=== PATIENT | male | born 1945 | race Caucasian/White ===

== ENCOUNTER 2016-08-24 11:54 | Inpatient (IN) | payer MEDICARE ==
[~2016-08-24] VITALS: Ht 182.9 cm; Wt 66.2 kg
[2016-08-24] VITALS (9 sets, daily range): BP systolic 152–156; BP diastolic 75–76; PULSE 79–98; RESP 16–17; TEMP 97.6–98.6; O2SAT 95–100
[2016-08-24] MEDS ORDERED: IOHEXOL 350 MG/ML 10 ML VIAL (for RAD DIAG) IV ONE (12:05)
[2016-08-24 12:18] LABS: AUTOMATED NEUTROPHIL # 11.2 TH/MM3 (1.8-7.7); BASOPHIL # 0.1 TH/MM3 (0-0.2); BASOPHIL % 0.8 % (0.0-2.0); EOSINOPHIL # 0.1 TH/MM3 (0-0.4); EOSINOPHIL % 0.4 % (0.0-4.0); HEMATOCRIT 35.6 % (39.0-51.0); I-STAT POTASSIUM 3.7 MMOL/L (3.5-4.9); I-STAT SODIUM 139 MMOL/L (138-146); LYMPH % 5.6 % (9.0-44.0); LYMPHOCYTE # 0.7 TH/MM3 (1.0-4.8); MEAN CELL VOLUME 91.9 FL (80.0-100.0); MEAN CORPUSCULAR HEMOGLOBIN 30.7 PG (27.0-34.0); MEAN CORPUSCULAR HGB CONC 33.5 % (32.0-36.0); MONO % 4.4 % (0.0-8.0); NEUT % 88.8 % (16.0-70.0); PLATELET COUNT 228 TH/MM3 (150-450); RED BLOOD COUNT 3.88 MIL/MM3 (4.50-5.90); RED CELL DISTRIBUTION WIDTH 14.9 % (11.6-17.2); WHITE BLOOD COUNT 12.6 TH/MM3 (4.0-11.0)
[2016-08-24 12:19] LABS: HEMO FLAGS AUTO DIFF
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
[2016-08-24 12:28] LABS: APTT (PATIENT) 23.3 SEC (24.3-30.1); PROTHROMBIN TIME - PATIENT 10.7 SEC (9.8-11.6)
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
[2016-08-24] MEDS: SODIUM CHLOR 0.9% 1000 ML INJ 1,000 ML IV SCH (12:41)
[2016-08-24] MEDS ORDERED: CHLORHEXIDINE GLUCONATE 2 % 1 PACK (2 CLOTHS) TOP PRN (12:45)
[2016-08-24] MEDS ORDERED: MISCELLANEOUS NURSING INFORMATION XX SCH (12:45)
[2016-08-24] MEDS ORDERED: MAGNESIUM HYDROXIDE SUSP 30 ML CUP PO PRN (12:45)
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
[2016-08-24 12:50] LABS: BANDS 12 % (0-6); BASOPHILS 1 % (0-2); METAMYELOCYTES 2 % (0-1); NEUTROPHIL # MANUAL DIFF 11.6 TH/MM3 (1.8-7.7); POLYS (SEG NEUTROPHILS) 78 % (16-70); WBC DIFF SAMPLE 100
[2016-08-24 12:51] LABS: PLATELET ESTIMATE SMEAR NORMAL (NORMAL); PLATELET MORPHOLOGY NORMAL (NORMAL); SCAN/DIFF FINAL DIFF MANUAL
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
[2016-08-24] MEDS ORDERED: ONDANSETRON HCL 4 MG/2 ML VIAL IV PRN (13:00)
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
[2016-08-24] MEDS: LIDOCAINE HCL 5% PATCH T-DERMAL SCH (14:15)
[2016-08-24] MEDS: METHOCARBAMOL 500 MG TAB PO SCH ×2 (14:34→22:54)
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
[2016-08-24] MEDS: FAMOTIDINE 20 MG/2 ML VIAL IV PUSH SCH ×2 (16:13→20:48)
[2016-08-24] MEDS: ACETAMINOPHEN/HYDROcodone 325 MG/5 MG TAB PO PRN ×2 (16:16→22:54)
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
[2016-08-24] MEDS ORDERED: LIDOCAINE HCL 1% 50 ML VIAL ONE (18:07)
--- NOTE | 2016-08-24 18:19 | RADRPT ---
EXAM DATE/TIME: 08/24/2016 17:18 [facility] COMPARISON: CT FACIAL BONES W/O CONTRAST, August 24, 2016, 12:05. INDICATIONS : Pain. MEDICAL HISTORY : Carcinoma, prostate. SURGICAL HISTORY : Right ankle. ENCOUNTER: Subsequent ACUITY: 1 day PAIN SCORE: 5/10 LOCATION: neck TECHNIQUE: Multiplanar, multisequence MRI examination of the cervical spine was performed. FINDINGS: VERTEBRAE: Normal vertebral body height. Homogeneous marrow signal. ALIGNMENT: No evidence of subluxation. CORD: Normal configuration and signal. POST FOSSA: The cerebellar tonsils are normal in position. A hematocrit level is seen involving the maxillary sinuses bilaterally. C2-C3: The thecal sac has a normal configuration. There is no evidence of disc herniation or spinal canal s tenosis. The neural foramina are patent bilaterally. C3-C4: There is a minimal broad-based disc bulge. No abutment of the cord or central canal stenosis. Lateral recesses are patent. Neural foramina are patent. C4-C5: There is a minimal broad-based disc bulge. No abutment of the cord or central canal stenosis. Lateral recesses are patent. Neural foramina are patent. C5-C6: There is a minimal broad-based disc bulge. No abutment of the cord or central canal stenosis. Lateral recesses are patent. Neural foramina are patent. C6-C7: The thecal sac has a normal configuration. There is no evidence of disc herniation or spinal canal s tenosis. The neural foramina are patent bilaterally. C7-T1: The thecal sac has a normal configuration. There is no evidence of disc herniation or spinal canal s tenosis. The neural foramina are patent bilaterally. CONCLUSION: 1. No acute abnormality involving the cervical spine. The cord shows normal signal throughout. 2. Minimal degenerative disc disease without abutment of the cord or neural foraminal narrowing. 3. Hematocrit levels involving the maxillary sinuses bilaterally. Osito Diop Jr., MD on August 24, 2016 at 18:12 Board Certified Radiologist. This report was verified electronically.
--- NOTE | 2016-08-24 18:30 | HHI.PR ---
Immediate Post Op Note Procedure Date: Aug 24, 2016 Pre Op Diagnosis: left forehead laceration 1cm left superior eyelid laceration 2cm Post Op Diagnosis: joanne Surgeon: Néstor Chi Transportation Modeler(s): pt's nurse jesus Procedure: closure of left forehead laceration and left upper eyelid laceration Complications: none Specimen(s) removed: none Estimated blood loss: minimal Anesthesia: Local (2%lidocaine approx 2cc) Drains: None Patient Condition: Good Date/Time of Procedure: SEE SURGICAL CARE RECORD Néstor Chi DMD Aug 24, 2016 18:30
[2016-08-24] MEDS: DOCUSATE SODIUM 50 MG/SENNA 8.6 MG TAB PO SCH (20:48)
[2016-08-24] MEDS: BACITRACIN OPHT OINT 3.5 GM TUBO SCH (20:49)
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
[2016-08-24] MEDS: REMOVE OLD LIDOCAINE PATCH T-DERMAL SCH (21:00)
[2016-08-25] VITALS (14 sets, daily range): BP systolic 119–148; BP diastolic 66–87; PULSE 84–108; RESP 13–27; TEMP 98.7–99; O2SAT 94–100
[2016-08-25] MEDS: SODIUM CHLOR 0.9% 1000 ML INJ 1,000 ML IV SCH ×2 (00:36→12:39)
[2016-08-25] MEDS: HYDROmorphone HCL PF 1 MG/ML VIAL IV PRN ×5 (02:01→19:26)
[2016-08-25] MEDS: LABETALOL HCL 100 MG/20 ML VIAL IV PRN (03:58)
[2016-08-25] MEDS: CHLORHEXIDINE GLUCONATE 2 % 1 PACK (2 CLOTHS) TOP SCH (04:00)
--- NOTE | 2016-08-25 04:05 | RADRPT ---
EXAM DATE/TIME: 08/25/2016 03:27 [facility] COMPARISON: No previous studies available for comparison. INDICATIONS : Shortness of breath. MEDICAL HISTORY : Non-responsive SURGICAL HISTORY : Non-responsive ENCOUNTER: Subsequent ACUITY: 2 days PAIN SCORE: Non-responsive. LOCATION: Bilateral chest FINDINGS: Left rib fractures are again noted. There is a curvilinear opacity projecting over the left mid-upper lung but it continues over the mediastinum and is not typical for pneumothorax. There are clearly so me lung markings peripheral to it. Mild bibasilar atelectasis noted. CONCLUSION: 1. Left rib fractures without a definite pneumothorax. Please see above. 2. Mild bibasilar atelectasis. Tacos Mcgowan MD on August 25, 2016 at 4:01 Board Certified Radiologist. This report was verified electronically.
--- NOTE | 2016-08-25 04:43 | RADRPT ---
EXAM DATE/TIME: 08/25/2016 04:32 [facility] COMPARISON: CT BRAIN W/O CONTRAST, August 24, 2016, 12:05. INDICATIONS : Follow up hemorrhage. RADIATION DOSE: 33.90 CTDIvol (mGy) MEDICAL HISTORY : None SURGICAL HISTORY : None. ENCOUNTER: Subsequent ACUITY: 1 day PAIN SCALE: Non-responsive LOCATION: cranial TECHNIQUE: Multiple contiguous axial images were obtained of the head. Using automated exposure control and adj ustment of the mA and/or kV according to patient size, radiation dose was kept as low as reasonably a chievable to obtain optimal diagnostic quality images. DICOM format image data is available electro nically for review and comparison. FINDINGS: Increased size and density of scattered parenchymal contusions noted. There is a 26 mm contusion late rally the right parietal lobe and an 18 x 47 mm contusion superiorly of the left parietal lobe now pr esent. 19 mm contusion anteriorly the right temporal lobe seen. Multiple scattered subcentimeter foci of parenchymal hemorrhage are seen, mostly of the right parietal and temporal lobes. Subarachnoid bl ood at the level of the basal cistern not significantly changed. Trace blood now seen dependently in the posterior horn of the right lateral ventricle. A subdural hemorrhage measuring about 6 mm in maxi mal thickness is seen along the anterior left temporal lobe. This is more conspicuous today but not s ignificantly changed. No midline shift. No mass lesion seen. No evidence of an acute ischemic event. CONCLUSION: 1. Increasing multifocal parenchymal hemorrhage. Please see above. 2. Trace hemorrhage now seen in the right lateral ventricle. 3. Left temporal small subdural hemorrhage not significantly changed. 4. Subarachnoid hemorrhage not significantly changed. 5. No measurable midline shift. Tacos Mcgowan MD on August 25, 2016 at 4:36 Board Certified Radiologist. This report was verified electronically.
[2016-08-25 05:01] LABS: AUTOMATED NEUTROPHIL # 12.9 TH/MM3 (1.8-7.7); BASOPHIL % 0.2 % (0.0-2.0); HEMATOCRIT 31.7 % (39.0-51.0); HEMO FLAGS DIFF FINAL; LYMPH % 2.5 % (9.0-44.0); LYMPHOCYTE # 0.4 TH/MM3 (1.0-4.8); MEAN CELL VOLUME 92.4 FL (80.0-100.0); MEAN CORPUSCULAR HEMOGLOBIN 30.7 PG (27.0-34.0); MEAN CORPUSCULAR HGB CONC 33.2 % (32.0-36.0); MONO % 6.6 % (0.0-8.0); NEUT % 90.7 % (16.0-70.0); PLATELET COUNT 171 TH/MM3 (150-450); RED BLOOD COUNT 3.43 MIL/MM3 (4.50-5.90); WHITE BLOOD COUNT 14.2 TH/MM3 (4.0-11.0)
[2016-08-25 05:33] LABS: BICARBONATE 20.8 MEQ/L (21.0-32.0); MAGNESIUM 1.8 MG/DL (1.5-2.5); POTASSIUM 3.1 MEQ/L (3.5-5.1)
[2016-08-25 06:50] LABS: BACTERIA, URINE RARE /hpf; BLOOD, URINE LARGE (NEG); GLUCOSE,URINE NEG (NEG); KETONE, URINE 40 mg/dL (NEG); MUCUS URINE MOD /lpf (OCC); NITRITE,URINE NEG (NEG); PH, URINE 5.5 (5.0-8.5); URINE COLOR YELLOW (YELLW/STRAW)
[2016-08-25 06:51] LABS: COMMENT (UR) CATH-CULTURE IND; CULTURE IF INDICATED CATH CULTURE IND
[2016-08-25] MEDS: METHOCARBAMOL 500 MG TAB PO SCH ×4 (07:10→22:00)
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
[2016-08-25 08:21] LABS: CALCIUM-PROTEIN CORRECTED 8.9 MG/DL (8.5-10.1)
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
[2016-08-25] MEDS: DOCUSATE SODIUM 50 MG/SENNA 8.6 MG TAB PO SCH ×3 (09:59→21:23)
[2016-08-25] MEDS: FAMOTIDINE 20 MG/2 ML VIAL IV PUSH SCH ×2 (09:59→21:22)
[2016-08-25] MEDS: LIDOCAINE HCL 5% PATCH T-DERMAL SCH (10:04)
[2016-08-25] MEDS: BACITRACIN OPHT OINT 3.5 GM TUBO SCH ×2 (10:04→21:00)
[2016-08-25] MEDS ORDERED: POTASSIUM PHOSPHATE INJ 30 MMOL in SODIUM CHLOR 0.9% 250 ML INJ 250 ML IV PRN (10:15)
[2016-08-25] MEDS ORDERED: POTASSIUM PHOSPHATE MONOBASIC 500 MG TAB PO/TUBE PRN (10:15)
[2016-08-25] MEDS ORDERED: MAGNESIUM OXIDE 400 MG TAB PO PRN (10:15)
[2016-08-25] MEDS ORDERED: MAGNESIUM SULFATE INJ 2 GM in SODIUM CHLORIDE 0.9% INJ 96 ML IV PRN (10:15)
[2016-08-25] MEDS ORDERED: POTASSIUM PHOSPHATE MONOBASIC 500 MG TAB PO PRN (10:15)
[2016-08-25] MEDS ORDERED: SODIUM PHOSPHATE INJ 30 MMOL in SODIUM CHLOR 0.9% 250 ML INJ 240 ML IV PRN (10:15)
[2016-08-25] MEDS ORDERED: MAGNESIUM SULFATE INJ 4 GM in SODIUM CHLORIDE 0.9% INJ 92 ML IV PRN (10:15)
[2016-08-25] MEDS ORDERED: POTASSIUM CHLORIDE 25 MEQ EFFERVESCENT TAB PO PRN (10:15)
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
[2016-08-25] MEDS: levETIRAcetam INJ 500 MG in SODIUM CHLORIDE 0.9% INJ 100 ML IV SCH ×2 (12:39→21:22)
[2016-08-25 12:44] LABS: APTT (PATIENT) 27.1 SEC (24.3-30.1); PROTHROMBIN TIME - PATIENT 11.3 SEC (9.8-11.6)
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
[2016-08-25] MEDS: ACETAMINOPHEN/HYDROcodone 325 MG/5 MG TAB PO PRN (14:52)
[2016-08-25] MEDS ORDERED: ACETAMINOPHEN 1000 MG/100 ML VIAL IV ONE (18:45)
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
[2016-08-25] MEDS ORDERED: LORazepam 2 MG/ML VIAL IV PUSH PRN (19:30)
[2016-08-25] MEDS: POTASSIUM CHLOR 20 MEQ PREMIX 100 ML IV PRN ×2 (19:52→22:14)
[2016-08-25] MEDS: REMOVE OLD LIDOCAINE PATCH T-DERMAL SCH (21:00)
[2016-08-26] VITALS (13 sets, daily range): BP systolic 113–149; BP diastolic 68–97; PULSE 96–144; RESP 12–21; TEMP 98.3–98.8; O2SAT 94–97
[2016-08-26] MEDS: SODIUM CHLOR 0.9% 1000 ML INJ 1,000 ML IV SCH ×2 (00:07→12:21)
[2016-08-26] MEDS: POTASSIUM CHLOR 20 MEQ PREMIX 100 ML IV PRN ×2 (00:08→03:01)
--- NOTE | 2016-08-26 02:01 | RADRPT ---
EXAM DATE/TIME: 08/26/2016 01:24 [facility] COMPARISON: CT BRAIN W/O CONTRAST, August 25, 2016, 4:32. INDICATIONS : Neuro status change. RADIATION DOSE: 39.91 CTDIvol (mGy) MEDICAL HISTORY : None SURGICAL HISTORY : None. ENCOUNTER: Subsequent ACUITY: 3 days PAIN SCALE: Non-responsive LOCATION: cranial TECHNIQUE: Multiple contiguous axial images were obtained of the head. Using automated exposure control and adj ustment of the mA and/or kV according to patient size, radiation dose was kept as low as reasonably a chievable to obtain optimal diagnostic quality images. DICOM format image data is available electro nically for review and comparison. FINDINGS: CEREBRUM: Left parietal hemorrhagic contusion unchanged. Right parietal cortical hemorrhagic contusion unchange d. Small adjacent right parietal parenchymal hemorrhage also unchanged. Peripheral right temporal lob e contusions unchanged. Left anterior temporal extra-axial hemorrhage unchanged. Right lateral ventri catarino hemorrhage unchanged. Sherrell-mesencephalic cistern hemorrhage bilaterally unchanged. No midline harry ft. POSTERIOR FOSSA: The cerebellum and brainstem are intact. The 4th ventricle is midline. The cerebellopontine angle i s unremarkable. EXTRACRANIAL: Sinus opacification and air fluid levels unchanged. SKULL: Facial bone fractures unchanged. CONCLUSION: No significant interval change in multiple intracranial hemorrhages. Yogi Arcos MD on August 26, 2016 at 1:56 Board Certified Radiologist. This report was verified electronically.
[2016-08-26] MEDS: HYDROmorphone HCL PF 1 MG/ML VIAL IV PRN (02:56)
[2016-08-26] MEDS: CHLORHEXIDINE GLUCONATE 2 % 1 PACK (2 CLOTHS) TOP SCH (03:13)
--- NOTE | 2016-08-26 03:51 | RADRPT ---
EXAM DATE/TIME: 08/26/2016 02:53 [facility] COMPARISON: CHEST SINGLE AP, August 25, 2016, 3:27. INDICATIONS : Short of breath. MEDICAL HISTORY : None. SURGICAL HISTORY : None. ENCOUNTER: Subsequent ACUITY: 2 days PAIN SCORE: Non-responsive. LOCATION: Bilateral chest FINDINGS: Single AP view of the chest. Patchy bilateral lower lung opacity unchanged. Small left pleural effusi on now seen. No evidence of pneumothorax. Cardiomediastinal silhouette unchanged. CONCLUSION: Small left pleural effusion. Patchy bilateral lower lung opacity unchanged. Yogi Arcos MD on August 26, 2016 at 3:48 Board Certified Radiologist. This report was verified electronically.
[2016-08-26 05:26] LABS: AUTOMATED NEUTROPHIL # 16.4 TH/MM3 (1.8-7.7); BASOPHIL % 0.1 % (0.0-2.0); HEMATOCRIT 31.9 % (39.0-51.0); HEMO FLAGS DIFF FINAL; LYMPH % 2.3 % (9.0-44.0); LYMPHOCYTE # 0.4 TH/MM3 (1.0-4.8); MEAN CELL VOLUME 91.2 FL (80.0-100.0); MEAN CORPUSCULAR HEMOGLOBIN 31.4 PG (27.0-34.0); MEAN CORPUSCULAR HGB CONC 34.4 % (32.0-36.0); MONO % 7.7 % (0.0-8.0); NEUT % 89.9 % (16.0-70.0); PLATELET COUNT 191 TH/MM3 (150-450); WHITE BLOOD COUNT 18.3 TH/MM3 (4.0-11.0)
[2016-08-26] MEDS: METHOCARBAMOL 500 MG TAB PO SCH ×3 (05:40→21:06)
[2016-08-26 05:51] LABS: ANION GAP 9 MEQ/L (5-15); AST (GOT) 51 U/L (15-37); BICARBONATE 23.2 MEQ/L (21.0-32.0); BLOOD UREA NITROGEN 11 MG/DL (7-18); CHLORIDE 102 MEQ/L (98-107); GLOMERULAR FILTRATION RATE 208 ML/MIN (>89); MAGNESIUM 1.8 MG/DL (1.5-2.5); POTASSIUM 3.9 MEQ/L (3.5-5.1); SODIUM (NA) 134 MEQ/L (136-145)
[2016-08-26 05:52] LABS: ALT (GPT) 16 U/L (12-78)
[2016-08-26 05:55] LABS: ALKALINE PHOSPHATASE 88 U/L (45-117); TOTAL BILIRUBIN ADULT 1.5 MG/DL (0.2-1.0)
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
[2016-08-26] MEDS: LIDOCAINE HCL 5% PATCH T-DERMAL SCH (09:20)
[2016-08-26] MEDS: levETIRAcetam INJ 500 MG in SODIUM CHLORIDE 0.9% INJ 100 ML IV SCH ×2 (09:20→21:11)
[2016-08-26] MEDS: DOCUSATE SODIUM 50 MG/SENNA 8.6 MG TAB PO SCH ×2 (09:20→19:46)
[2016-08-26] MEDS: FAMOTIDINE 20 MG/2 ML VIAL IV PUSH SCH ×2 (09:21→21:11)
[2016-08-26] MEDS: BACITRACIN OPHT OINT 3.5 GM TUBO SCH ×2 (09:21→21:00)
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
[2016-08-26] MEDS: SODIUM CHLORIDE 23.4% INJ 188 MEQ in SODIUM CHLOR 0.9% 1000 ML INJ 1,000 ML IV SCH (13:55)
[2016-08-26] MEDS ORDERED: levETIRAcetam 1000 MG INJ 100 ML IV ONE (14:45)
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
[2016-08-26] MEDS: REMOVE OLD LIDOCAINE PATCH T-DERMAL SCH (21:00)
[2016-08-26] MEDS ORDERED: levETIRAcetam 1000 MG INJ 100 ML IV SCH (21:00)
[2016-08-27] VITALS (12 sets, daily range): BP systolic 98–118; BP diastolic 62–76; PULSE 95–118; RESP 16–22; TEMP 98.1–99.2; O2SAT 97–98
[2016-08-27] MEDS: SODIUM CHLOR 0.9% 1000 ML INJ 1,000 ML IV SCH (00:16)
[2016-08-27] MEDS: CHLORHEXIDINE GLUCONATE 2 % 1 PACK (2 CLOTHS) TOP SCH (04:00)
[2016-08-27 04:10] LABS: HEMATOCRIT 33.8 % (39.0-51.0); MEAN CELL VOLUME 89.8 FL (80.0-100.0); MEAN CORPUSCULAR HEMOGLOBIN 30.9 PG (27.0-34.0); MEAN CORPUSCULAR HGB CONC 34.4 % (32.0-36.0); PLATELET COUNT 188 TH/MM3 (150-450); RED BLOOD COUNT 3.76 MIL/MM3 (4.50-5.90); RED CELL DISTRIBUTION WIDTH 14.9 % (11.6-17.2); REVIEW FLAG FINAL; WHITE BLOOD COUNT 13.9 TH/MM3 (4.0-11.0)
[2016-08-27] MEDS: METHOCARBAMOL 500 MG TAB PO SCH ×3 (04:10→22:07)
[2016-08-27 04:46] LABS: BICARBONATE 21.4 MEQ/L (21.0-32.0); MAGNESIUM 1.8 MG/DL (1.5-2.5); POTASSIUM 3.4 MEQ/L (3.5-5.1)
[2016-08-27] MEDS: POTASSIUM CHLOR 20 MEQ PREMIX 100 ML IV PRN ×3 (05:00→23:03)
[2016-08-27] MEDS: LABETALOL HCL 100 MG/20 ML VIAL IV PRN (06:43)
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
[2016-08-27] MEDS: levETIRAcetam INJ 500 MG in SODIUM CHLORIDE 0.9% INJ 100 ML IV SCH ×2 (08:10→20:07)
[2016-08-27] MEDS: LIDOCAINE HCL 5% PATCH T-DERMAL SCH (08:11)
[2016-08-27] MEDS: FAMOTIDINE 20 MG/2 ML VIAL IV PUSH SCH ×2 (08:11→20:07)
[2016-08-27] MEDS: DOCUSATE SODIUM 50 MG/SENNA 8.6 MG TAB PO SCH ×2 (08:12→20:07)
[2016-08-27] MEDS: LACTULOSE SYRUP 20 GM/30 ML CUP PO SCH (08:12)
[2016-08-27] MEDS: BACITRACIN OPHT OINT 3.5 GM TUBO SCH ×2 (08:13→20:07)
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
[2016-08-27] MEDS ORDERED: SODIUM CHLOR 0.9% 1000 ML INJ 1,000 ML IV ONE (10:30)
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
[2016-08-27] MEDS: SODIUM CHLORIDE 23.4% INJ 188 MEQ in SODIUM CHLOR 0.9% 1000 ML INJ 1,000 ML IV SCH ×2 (13:00→22:07)
[2016-08-27] MEDS: ACETAMINOPHEN/HYDROcodone 325 MG/5 MG TAB PO PRN (13:31)
[2016-08-27 20:25] LABS: POTASSIUM 3.4 MEQ/L (3.5-5.1)
[2016-08-27] MEDS: REMOVE OLD LIDOCAINE PATCH T-DERMAL SCH (21:00)
[2016-08-28] VITALS (12 sets, daily range): BP systolic 115–152; BP diastolic 59–95; PULSE 101–124; RESP 20–23; TEMP 98.2–99.1; O2SAT 97–99
[2016-08-28] MEDS: HALOPERIDOL LACTATE 5 MG/ML AMP IV PRN ×2 (00:05→10:13)
[2016-08-28] MEDS: POTASSIUM CHLOR 20 MEQ PREMIX 100 ML IV PRN (01:00)
[2016-08-28] MEDS: CHLORHEXIDINE GLUCONATE 2 % 1 PACK (2 CLOTHS) TOP SCH (04:00)
[2016-08-28 04:10] LABS: BLOOD GAS BASE EXCESS -3.4 mmol/L (-2-2); BLOOD GAS CARBOXYHEMOGLOBIN 1.5 % (0-4); BLOOD GAS HCO3 20 mmol/L (22-26); BLOOD GAS METHEMOGLOBIN 0.7 % (0-2); BLOOD GAS O2 HGB SATURATION 95 % (90-100); BLOOD GAS OXYGEN CONTENT 13.8 Vol % (12.0-20.0); BLOOD GAS PCO2 29 mmHg (38-42); BLOOD GAS PO2 87 mmHg (61-120); BLOOD GAS TOTAL HGB 10.3 G/DL (12.0-16.0); CRITICAL VALUE NO; DRAW SITE RT RADIAL; FIO2 21 %; NUMBER OF ARTERIAL PUNCTURES 1; STAT NO; TEMP CORR TO 98.6; ULNAR PULSE PRESENT
--- NOTE | 2016-08-28 04:32 | RADRPT ---
EXAM DATE/TIME: 08/28/2016 04:18 [facility] COMPARISON: CT BRAIN W/O CONTRAST, August 26, 2016, 1:24. INDICATIONS : Follow up trauma. RADIATION DOSE: 39.41 CTDIvol (mGy) MEDICAL HISTORY : None SURGICAL HISTORY : None. ENCOUNTER: Subsequent ACUITY: 4 - 6 days PAIN SCALE: 7/10 LOCATION: cranial TECHNIQUE: Multiple contiguous axial images were obtained of the head. Using automated exposure control and adj ustment of the mA and/or kV according to patient size, radiation dose was kept as low as reasonably a chievable to obtain optimal diagnostic quality images. DICOM format image data is available electro nically for review and comparison. FINDINGS: Air-fluid levels in maxillary sinuses and sphenoid sinuses, left frontal sinus. There are reidentifie d hemorrhagic contusions in the right temporal region with a small amount of surrounding edema, left temporal extra-axial hemorrhage measuring 6.7 mm in maximal thickness, hemorrhage in the perimesencep halic cistern, bilateral posterior horns, right parietal hemorrhage and a left frontal supraventricul ar hematoma with surrounding edema, not significantly changed. There are no new areas of hemorrhage i dentified. No fractures are seen. CONCLUSION: No significant interval change. Andrea Candelario MD on August 28, 2016 at 4:28 Board Certified Radiologist. This report was verified electronically.
[2016-08-28 05:32] LABS: AUTOMATED NEUTROPHIL # 10.3 TH/MM3 (1.8-7.7); BASOPHIL % 0.1 % (0.0-2.0); EOSINOPHIL % 0.2 % (0.0-4.0); HEMO FLAGS DIFF FINAL; LYMPH % 3.5 % (9.0-44.0); LYMPHOCYTE # 0.4 TH/MM3 (1.0-4.8); MEAN CELL VOLUME 93.1 FL (80.0-100.0); MEAN CORPUSCULAR HEMOGLOBIN 31.5 PG (27.0-34.0); MEAN CORPUSCULAR HGB CONC 33.8 % (32.0-36.0); MONO % 7.9 % (0.0-8.0); NEUT % 88.3 % (16.0-70.0); PLATELET COUNT 160 TH/MM3 (150-450); RED BLOOD COUNT 3.44 MIL/MM3 (4.50-5.90); RED CELL DISTRIBUTION WIDTH 14.8 % (11.6-17.2); WHITE BLOOD COUNT 11.7 TH/MM3 (4.0-11.0)
[2016-08-28] MEDS: METHOCARBAMOL 500 MG TAB PO SCH ×3 (05:43→20:51)
[2016-08-28 05:51] LABS: ANION GAP 9 MEQ/L (5-15); AST (GOT) 38 U/L (15-37); BLOOD UREA NITROGEN 8 MG/DL (7-18); CHLORIDE 106 MEQ/L (98-107); GLOMERULAR FILTRATION RATE 178 ML/MIN (>89); MAGNESIUM 1.9 MG/DL (1.5-2.5); POTASSIUM 3.8 MEQ/L (3.5-5.1); SODIUM (NA) 137 MEQ/L (136-145)
[2016-08-28 05:55] LABS: ALKALINE PHOSPHATASE 76 U/L (45-117); ALT (GPT) 15 U/L (12-78); TOTAL BILIRUBIN ADULT 1.2 MG/DL (0.2-1.0)
[2016-08-28] MEDS: ACETAMINOPHEN/HYDROcodone 325 MG/5 MG TAB PO PRN ×4 (07:05→22:14)
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
[2016-08-28] MEDS: BACITRACIN OPHT OINT 3.5 GM TUBO SCH ×2 (09:00→20:52)
[2016-08-28] MEDS: LIDOCAINE HCL 5% PATCH T-DERMAL SCH (10:06)
[2016-08-28] MEDS: levETIRAcetam INJ 500 MG in SODIUM CHLORIDE 0.9% INJ 100 ML IV SCH ×2 (10:08→20:50)
[2016-08-28] MEDS: LACTULOSE SYRUP 20 GM/30 ML CUP PO SCH (10:09)
[2016-08-28] MEDS: FAMOTIDINE 20 MG/2 ML VIAL IV PUSH SCH ×2 (10:09→20:51)
[2016-08-28] MEDS: DOCUSATE SODIUM 50 MG/SENNA 8.6 MG TAB PO SCH ×2 (10:09→20:51)
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
[2016-08-28] MEDS: LABETALOL HCL 100 MG/20 ML VIAL IV PRN ×2 (11:47→16:14)
[2016-08-28] MEDS: SODIUM CHLORIDE 1 GRAM TAB PO SCH (12:29)
[2016-08-28] MEDS: ACETAMINOPHEN 1000 MG/100 ML VIAL IV PRN (15:49)
[2016-08-28] MEDS: REMOVE OLD LIDOCAINE PATCH T-DERMAL SCH (20:51)
[2016-08-28] MEDS: SODIUM CHLORIDE 23.4% INJ 188 MEQ in SODIUM CHLOR 0.9% 1000 ML INJ 1,000 ML IV SCH (21:43)
[2016-08-29] VITALS (12 sets, daily range): BP systolic 117–139; BP diastolic 68–83; PULSE 99–130; RESP 20–25; TEMP 98.2–98.8; O2SAT 95–99
[2016-08-29] MEDS: HYDROmorphone HCL PF 1 MG/ML VIAL IV PRN (00:19)
[2016-08-29] MEDS: CHLORHEXIDINE GLUCONATE 2 % 1 PACK (2 CLOTHS) TOP SCH (04:00)
[2016-08-29 05:48] LABS: AUTOMATED NEUTROPHIL # 18.3 TH/MM3 (1.8-7.7); BASOPHIL # 0.2 TH/MM3 (0-0.2); BASOPHIL % 1.1 % (0.0-2.0); EOSINOPHIL % 0.1 % (0.0-4.0); HEMATOCRIT 32.7 % (39.0-51.0); HEMO FLAGS DIFF FINAL; LYMPH % 1.8 % (9.0-44.0); LYMPHOCYTE # 0.4 TH/MM3 (1.0-4.8); MEAN CELL VOLUME 92.5 FL (80.0-100.0); MEAN CORPUSCULAR HEMOGLOBIN 30.8 PG (27.0-34.0); MEAN CORPUSCULAR HGB CONC 33.3 % (32.0-36.0); MONO % 4.6 % (0.0-8.0); NEUT % 92.4 % (16.0-70.0); PLATELET COUNT 161 TH/MM3 (150-450); RED BLOOD COUNT 3.53 MIL/MM3 (4.50-5.90); RED CELL DISTRIBUTION WIDTH 14.9 % (11.6-17.2); WHITE BLOOD COUNT 19.8 TH/MM3 (4.0-11.0)
[2016-08-29 06:06] LABS: ALT (GPT) 16 U/L (12-78); ANION GAP 11 MEQ/L (5-15); AST (GOT) 50 U/L (15-37); BICARBONATE 19.1 MEQ/L (21.0-32.0); BLOOD UREA NITROGEN 9 MG/DL (7-18); CHLORIDE 107 MEQ/L (98-107); GLOMERULAR FILTRATION RATE 227 ML/MIN (>89); MAGNESIUM 1.8 MG/DL (1.5-2.5); POTASSIUM 3.6 MEQ/L (3.5-5.1); SODIUM (NA) 137 MEQ/L (136-145)
[2016-08-29 06:09] LABS: ALKALINE PHOSPHATASE 75 U/L (45-117)
[2016-08-29] MEDS: METHOCARBAMOL 500 MG TAB PO SCH ×3 (06:10→21:17)
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
[2016-08-29] MEDS: LACTULOSE SYRUP 20 GM/30 ML CUP PO SCH (08:11)
[2016-08-29] MEDS: levETIRAcetam INJ 500 MG in SODIUM CHLORIDE 0.9% INJ 100 ML IV SCH ×2 (08:12→21:17)
[2016-08-29] MEDS: FAMOTIDINE 20 MG/2 ML VIAL IV PUSH SCH ×2 (08:12→21:17)
[2016-08-29] MEDS: DOCUSATE SODIUM 50 MG/SENNA 8.6 MG TAB PO SCH ×2 (08:12→21:17)
[2016-08-29] MEDS: SODIUM CHLORIDE 1 GRAM TAB PO SCH (08:12)
[2016-08-29] MEDS: LIDOCAINE HCL 5% PATCH T-DERMAL SCH (08:12)
[2016-08-29] MEDS: BACITRACIN OPHT OINT 3.5 GM TUBO SCH ×2 (08:13→21:18)
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
[2016-08-29] MEDS: SODIUM CHLORIDE 23.4% INJ 188 MEQ in SODIUM CHLOR 0.9% 1000 ML INJ 1,000 ML IV SCH (18:21)
[2016-08-29] MEDS: REMOVE OLD LIDOCAINE PATCH T-DERMAL SCH (21:00)
[2016-08-30] VITALS (12 sets, daily range): BP systolic 129–146; BP diastolic 70–87; PULSE 113–138; RESP 21–32; TEMP 98–98.7; O2SAT 95–97
[2016-08-30] MEDS: ACETAMINOPHEN/HYDROcodone 325 MG/5 MG TAB PO PRN (02:14)
[2016-08-30] MEDS: CHLORHEXIDINE GLUCONATE 2 % 1 PACK (2 CLOTHS) TOP SCH (04:00)
[2016-08-30 05:02] LABS: AUTOMATED NEUTROPHIL # 14.3 TH/MM3 (1.8-7.7); BASOPHIL # 0.1 TH/MM3 (0-0.2); BASOPHIL % 0.7 % (0.0-2.0); LYMPH % 3.2 % (9.0-44.0); LYMPHOCYTE # 0.5 TH/MM3 (1.0-4.8); MEAN CELL VOLUME 92.2 FL (80.0-100.0); MEAN CORPUSCULAR HEMOGLOBIN 32.1 PG (27.0-34.0); MEAN CORPUSCULAR HGB CONC 34.8 % (32.0-36.0); MONO % 4.6 % (0.0-8.0); NEUT % 91.5 % (16.0-70.0); PLATELET COUNT 161 TH/MM3 (150-450); RED BLOOD COUNT 3.37 MIL/MM3 (4.50-5.90); RED CELL DISTRIBUTION WIDTH 14.9 % (11.6-17.2); WHITE BLOOD COUNT 15.6 TH/MM3 (4.0-11.0)
[2016-08-30 05:05] LABS: ANION GAP 13 MEQ/L (5-15); AST (GOT) 45 U/L (15-37); BICARBONATE 19.2 MEQ/L (21.0-32.0); BLOOD UREA NITROGEN 17 MG/DL (7-18); CHLORIDE 111 MEQ/L (98-107); GLOMERULAR FILTRATION RATE 208 ML/MIN (>89); POTASSIUM 3.2 MEQ/L (3.5-5.1); SODIUM (NA) 143 MEQ/L (136-145)
[2016-08-30 05:06] LABS: ALT (GPT) 13 U/L (12-78)
[2016-08-30 05:08] LABS: ALKALINE PHOSPHATASE 74 U/L (45-117); HEMO FLAGS AUTO DIFF; TOTAL BILIRUBIN ADULT 1.3 MG/DL (0.2-1.0)
[2016-08-30] MEDS: METHOCARBAMOL 500 MG TAB PO SCH ×3 (05:46→22:00)
[2016-08-30 06:55] LABS: SCAN/DIFF AUTO DIFF CONFIRMED
[2016-08-30 06:56] LABS: OVALOCYTES 1+ (NORMAL); TEARDROP RBCS 1+ (NORMAL)
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
[2016-08-30] MEDS: HALOPERIDOL LACTATE 5 MG/ML AMP IV PRN (08:45)
[2016-08-30] MEDS: DOCUSATE SODIUM 50 MG/SENNA 8.6 MG TAB PO SCH ×2 (09:02→21:00)
[2016-08-30] MEDS: SODIUM CHLORIDE 1 GRAM TAB PO SCH (09:02)
[2016-08-30] MEDS: levETIRAcetam INJ 500 MG in SODIUM CHLORIDE 0.9% INJ 100 ML IV SCH ×2 (09:02→22:49)
[2016-08-30] MEDS: LIDOCAINE HCL 5% PATCH T-DERMAL SCH (09:03)
[2016-08-30] MEDS: FAMOTIDINE 20 MG/2 ML VIAL IV PUSH SCH ×2 (09:03→22:49)
[2016-08-30] MEDS: LACTULOSE SYRUP 20 GM/30 ML CUP PO SCH (09:03)
[2016-08-30] MEDS: BACITRACIN OPHT OINT 3.5 GM TUBO SCH ×2 (09:04→22:51)
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
[2016-08-30] MEDS: ENOXAPARIN SODIUM 40 MG/0.4 ML SYRINGE SQ SCH (11:34)
--- NOTE | 2016-08-30 11:34 | RADRPT ---
EXAM DATE/TIME: 08/30/2016 11:19 [facility] COMPARISON: No previous studies available for comparison. INDICATIONS : Dobhoff placement. MEDICAL HISTORY : None. SURGICAL HISTORY : None. ENCOUNTER: Subsequent ACUITY: 1 day PAIN SCORE: 0/10 LOCATION: Bilateral chest FINDINGS: A single view of the chest demonstrates the interval placement of an feeding tube coiled within the s tomach. The small left pleural effusion. The cardiomediastinal contours are unremarkable. Osseous s tructures are intact. CONCLUSION: Feeding tube clinical the stomach. Small left pleural effusion Jackson Frank MD on August 30, 2016 at 11:32 Board Certified Radiologist. This report was verified electronically.
[2016-08-30] MEDS: SODIUM CHLOR 0.9% 1000 ML INJ 1,000 ML IV SCH (11:35)
[2016-08-30 11:52] LABS: VWF AG 238 % (50-217)
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
--- NOTE | 2016-08-30 14:58 | RADRPT ---
EXAM DATE/TIME: 08/30/2016 14:19 [facility] COMPARISON: CHEST SINGLE AP, August 30, 2016, 11:19. INDICATIONS : Dobhoff tube placement MEDICAL HISTORY : intracranial hemorrhage SURGICAL HISTORY : None. ENCOUNTER: Subsequent ACUITY: 4 - 6 days PAIN SCORE: Non-responsive. LOCATION: Bilateral chest FINDINGS: A single view of the chest demonstrates the lungs to be symmetrically aerated without evidence of mas s, infiltrate or effusion. The cardiomediastinal contours are unremarkable. Osseous structures are intact. CONCLUSION: Feeding tube extends into the right lower lung. I relayed the findings to the floor immediately after completion of the study. They are already awar e and are removing the tube for repositioning. Jackson Frank MD on August 30, 2016 at 14:50 Board Certified Radiologist. This report was verified electronically.
[2016-08-30] MEDS: SODIUM CHLORIDE 23.4% INJ 188 MEQ in SODIUM CHLOR 0.9% 1000 ML INJ 1,000 ML IV SCH (15:26)
--- NOTE | 2016-08-30 15:38 | RADRPT ---
EXAM DATE/TIME: 08/30/2016 15:16 [facility] COMPARISON: CHEST SINGLE AP, August 30, 2016, 14:19. INDICATIONS : Evaluate Dobhoff tube placement MEDICAL HISTORY : intracranial hemorrhage SURGICAL HISTORY : None. ENCOUNTER: Subsequent ACUITY: 4 - 6 days PAIN SCORE: Non-responsive. LOCATION: Bilateral chest FINDINGS: Interval repositioning of feeding type nasoenteric catheter with tip now projecting in the proximal s tomach. Mild left lower lobe airspace disease unchanged from prior exam. No significant pneumothorax. Remainder of exam is unchanged. CONCLUSION: 1. Interval repositioning of feeding type nasoenteric catheter (Dobbhoff tube) with tip now projectin g in the proximal stomach. Calixto Jean Baptiste MD on August 30, 2016 at 15:35 Board Certified Radiologist. This report was verified electronically.
[2016-08-30 15:52] LABS: COAG FACTOR VIII 82 (50-180)
[2016-08-30] MEDS: HYDROmorphone HCL PF 1 MG/ML VIAL IV PRN (16:54)
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
[2016-08-30] MEDS: REMOVE OLD LIDOCAINE PATCH T-DERMAL SCH (23:21)
[2016-08-31] VITALS (14 sets, daily range): BP systolic 121–144; BP diastolic 62–87; PULSE 101–140; RESP 18–26; TEMP 98.2–99.3; O2SAT 93–97
[2016-08-31] MEDS: METOPROLOL TARTRATE 5 MG/5 ML VIAL IV PUSH PRN ×4 (02:23→22:07)
[2016-08-31] MEDS: CHLORHEXIDINE GLUCONATE 2 % 1 PACK (2 CLOTHS) TOP SCH (04:00)
[2016-08-31 04:37] LABS: BASOPHIL % 0.1 % (0.0-2.0); HEMATOCRIT 30.7 % (39.0-51.0); HEMO FLAGS DIFF FINAL; LYMPH % 1.7 % (9.0-44.0); LYMPHOCYTE # 0.3 TH/MM3 (1.0-4.8); MEAN CELL VOLUME 93.5 FL (80.0-100.0); MEAN CORPUSCULAR HEMOGLOBIN 31.1 PG (27.0-34.0); MEAN CORPUSCULAR HGB CONC 33.3 % (32.0-36.0); MONO % 5.2 % (0.0-8.0); PLATELET COUNT 171 TH/MM3 (150-450); RED BLOOD COUNT 3.28 MIL/MM3 (4.50-5.90); RED CELL DISTRIBUTION WIDTH 14.7 % (11.6-17.2); WHITE BLOOD COUNT 16.1 TH/MM3 (4.0-11.0)
[2016-08-31 05:00] LABS: ANION GAP 14 MEQ/L (5-15); AST (GOT) 26 U/L (15-37); BICARBONATE 19.3 MEQ/L (21.0-32.0); BLOOD UREA NITROGEN 21 MG/DL (7-18); CHLORIDE 118 MEQ/L (98-107); GLOMERULAR FILTRATION RATE 187 ML/MIN (>89); POTASSIUM 3.2 MEQ/L (3.5-5.1); SODIUM (NA) 151 MEQ/L (136-145)
[2016-08-31 05:03] LABS: ALKALINE PHOSPHATASE 73 U/L (45-117); ALT (GPT) 14 U/L (12-78); TOTAL BILIRUBIN ADULT 1.1 MG/DL (0.2-1.0)
[2016-08-31] MEDS: METHOCARBAMOL 500 MG TAB PO SCH (06:00)
[2016-08-31] MEDS: SODIUM CHLOR 0.9% 1000 ML INJ 1,000 ML IV SCH (06:25)
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
[2016-08-31] MEDS: DOCUSATE SODIUM 50 MG/SENNA 8.6 MG TAB PO SCH ×2 (09:00→21:51)
[2016-08-31] MEDS: BACITRACIN OPHT OINT 3.5 GM TUBO SCH ×2 (09:00→21:00)
[2016-08-31] MEDS: LACTULOSE SYRUP 20 GM/30 ML CUP PO SCH (09:00)
[2016-08-31] MEDS: SODIUM CHLORIDE 1 GRAM TAB PO SCH (09:00)
[2016-08-31] MEDS: LIDOCAINE HCL 5% PATCH T-DERMAL SCH (09:03)
[2016-08-31] MEDS: levETIRAcetam INJ 500 MG in SODIUM CHLORIDE 0.9% INJ 100 ML IV SCH ×2 (09:04→21:49)
[2016-08-31] MEDS: FAMOTIDINE 20 MG/2 ML VIAL IV PUSH SCH ×2 (09:04→21:49)
[2016-08-31] MEDS: POTASSIUM CHLOR 20 MEQ PREMIX 100 ML IV PRN ×3 (09:04→13:41)
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
[2016-08-31 10:35] LABS: BLOOD GAS BASE EXCESS -5.4 mmol/L (-2-2); BLOOD GAS CARBOXYHEMOGLOBIN 1.6 % (0-4); BLOOD GAS HCO3 18 mmol/L (22-26); BLOOD GAS O2 HGB SATURATION 89 % (90-100); BLOOD GAS OXYGEN CONTENT 12.7 Vol % (12.0-20.0); BLOOD GAS PCO2 29 mmHg (38-42); BLOOD GAS PO2 64 mmHg (61-120); BLOOD GAS TOTAL HGB 10.2 G/DL (12.0-16.0); TEMP CORR TO 98.6
[2016-08-31 10:36] LABS: CRITICAL VALUE YES
[2016-08-31 10:37] LABS: DRAW SITE LT RADIAL; FIO2 21 %; NUMBER OF ARTERIAL PUNCTURES 1; STAT NO; ULNAR PULSE PRESENT
[2016-08-31] MEDS: ENOXAPARIN SODIUM 40 MG/0.4 ML SYRINGE SQ SCH (10:55)
--- NOTE | 2016-08-31 13:07 | HHI.PR ---
Neuropsych Emotional Emotional: Mild: Irritable/Angry/Frustrate Behavior Behavior: Intact: Coping/Acceptance, Cooperative w/ Treatment, Motivation, Mild: Frustration Tolerance/Cosmos, Moderate: Impulsive/Agitated Cognitive Cognitive: Moderate: Cognitive, Attention/Concentration, Confused/Orientation, Insight/Awareness, Judgement/Problem-Solving, Memory Psychosocial Psychosocial: Intact: Psychosocial, Family/Other Adjustment, Realistic Expectation Progress Notes/Response to Tx Contents of Sessions: Adjustment, Level of Consciousness Time with Patient: 30 minutes Premorbid psychological status Premorbid Cognitive, Emotional and Behavioral Status: Stable. The patient has high school and two years of college, and a solid solid work history prior to this injury. The patient has no psychiatric difficulties, as described above. Substance abuse history is unremarkable. He is and has one adult child living in [facility]. Behavioral Reactions of Patient and Family/Support System: Stable. The patient s family is experiencing ongoing issues of adjustment given the nature of the injury, and this aspect of recovery will require ongoing monitoring. Emotional/Behavioral Status of Patient and Family/Support System: Stable. Pertinent issues, if appropriate to this patients clinical care, are described in detail above. Maximizing acute care outcome It is recommended that the patient be monitored for emergent behavioral impulsivity as the medical condition evolves. This patients neuropathological challenges may limit their rehabilitation potential going forward, and these challenges will require specialized therapeutic skills to maximize outcome. Additionally, the patients family is experiencing ongoing issues of adjustment given the traumatic nature of the injury, and they will benefit from ongoing psychological assistance. Anticipated Problems Ongoing areas of concern will include behavioral impulsivity, lack of insight and judgment, which is expected to improve with time and treatment. Presently , the patient is following two-step commands. Treatment Plan This clinician will continue to follow with you throughout the course of this patients acute care treatment, and I will be available to meet with the patient s family/support system to facilitate their understanding and the ongoing care of their family member. The goals of neuropsychological intervention shall be both educational and supportive to the family/support system as is deemed clinically appropriate. [facility] Level: IV:Confused/Agitated-maximal assist Impression This man suffered a severe traumatic brain injury based on the neuroimaging results, although his initial GCS score predicted otherwise. Since his admission, he has experienced unexplained mental status changes, which are attributable to his current course of recovery, and as such is interpreted as the expected course of recovery following brain injury. Diagnosis: (1) Major neurocognitive disorder as late effect of traumatic brain injury with behavioral disturbance Status: Acute Progress Note Narrative Ongoing follow-up of patient seen during daily trauma rounds. This is day 7 post injury. The patient is awake, oriented x 4, yet intermittently confused. He had been agitated/restless, which responded well to the trauma teams consensus of valproic acid 250 TID. I had a lengthy discussion with the patient 's about TBI recovery, treatment, etc., and also provided her a Man TBI book yesterday to assist with her understanding. The patient is an improving Rancho IV. I will continue to follow. Breezy Palma PhD Aug 31, 2016 13:07
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
[2016-08-31] MEDS ORDERED: BISACODYL 10 MG SUPP RECTAL PRN (21:15)
[2016-08-31] MEDS ORDERED: BISACODYL 10 MG SUPP RECTAL ONE (21:15)
[2016-08-31] MEDS: REMOVE OLD LIDOCAINE PATCH T-DERMAL SCH (21:59)
[2016-08-31] MEDS: PROPRANOLOL HCL 20 MG TAB PO SCH (23:34)
[2016-09-01] VITALS (12 sets, daily range): BP systolic 112–138; BP diastolic 57–87; PULSE 61–120; RESP 18–34; TEMP 98–98.7; O2SAT 90–97
[2016-09-01] MEDS: VALPROIC ACID 250 MG CAP PO SCH ×2 (00:05→09:20)
[2016-09-01] MEDS: SODIUM CHLOR 0.9% 1000 ML INJ 1,000 ML IV SCH (01:58)
[2016-09-01] MEDS: CHLORHEXIDINE GLUCONATE 2 % 1 PACK (2 CLOTHS) TOP SCH (04:00)
[2016-09-01 04:46] LABS: MAGNESIUM 2.1 MG/DL (1.5-2.5); POTASSIUM 3.2 MEQ/L (3.5-5.1)
[2016-09-01] MEDS: POTASSIUM CHLOR 20 MEQ PREMIX 100 ML IV PRN ×3 (04:51→17:05)
[2016-09-01] MEDS: SODIUM CHLORIDE 1 GRAM TAB PO SCH (08:45)
[2016-09-01] MEDS: LACTULOSE SYRUP 20 GM/30 ML CUP PO SCH (08:46)
[2016-09-01] MEDS: levETIRAcetam INJ 500 MG in SODIUM CHLORIDE 0.9% INJ 100 ML IV SCH (08:46)
[2016-09-01] MEDS: PROPRANOLOL HCL 20 MG TAB PO SCH ×2 (08:46→21:00)
[2016-09-01] MEDS: FAMOTIDINE 20 MG/2 ML VIAL IV PUSH SCH ×2 (08:46→22:20)
[2016-09-01] MEDS: DOCUSATE SODIUM 50 MG/SENNA 8.6 MG TAB PO SCH ×2 (08:46→21:00)
[2016-09-01] MEDS: LIDOCAINE HCL 5% PATCH T-DERMAL SCH (08:47)
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
[2016-09-01] MEDS: ENOXAPARIN SODIUM 40 MG/0.4 ML SYRINGE SQ SCH (10:08)
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
[2016-09-01] MEDS: REMOVE OLD LIDOCAINE PATCH T-DERMAL SCH (21:00)
[2016-09-01] MEDS: POTASSIUM CHLORIDE 25 MEQ EFFERVESCENT TAB NG SCH (21:00)
[2016-09-01] MEDS: BACITRACIN OPHT OINT 3.5 GM TUBO SCH (21:00)
[2016-09-01] MEDS: VALPROATE INJ 250 MG in SODIUM CHLORIDE 0.9% INJ 100 ML IV SCH (22:20)
[2016-09-02] VITALS (17 sets, daily range): BP systolic 85–127; BP diastolic 50–75; PULSE 102–135; RESP 17–31; TEMP 99–100.5; O2SAT 95–100
--- NOTE | 2016-09-02 00:10 | RADRPT ---
EXAM DATE/TIME: 09/01/2016 23:52 [place] COMPARISON: CT BRAIN W/O CONTRAST, August 28, 2016, 4:18. INDICATIONS : Follow up hemorrhage. RADIATION DOSE: 38.75 CTDIvol (mGy) MEDICAL HISTORY : None SURGICAL HISTORY : None. ENCOUNTER: Subsequent ACUITY: 1 week PAIN SCALE: Non-responsive LOCATION: cranial TECHNIQUE: Multiple contiguous axial images were obtained of the head. Using automated exposure control and adj ustment of the mA and/or kV according to patient size, radiation dose was kept as low as reasonably a chievable to obtain optimal diagnostic quality images. DICOM format image data is available electro nically for review and comparison. FINDINGS: Today's exam is compared to the prior study. There continues to be stable multiple areas of hemorrhag ic contusions involving the right temporal lobe right posterior parietal lobe and high left cerebral cortex without significant change. There continues to be a small stable left subdural hematoma with 6 mm of separation in the left temporal lobe fossa. The ventricles are stable in size. There has been interval development of a right-sided chronic subdural hygroma with 1 cm of separation. This is new c ompared to the prior exam. There is mild midline shift to the left by 3 mm. There continues to be a s mall amount of bilateral intraventricular hemorrhage. This appears to be mildly improved. The posteri or fossa remain stable. CONCLUSION: 1. Since the prior exam, there has been interval development of a right-sided subdural hygroma with 1 cm separation. There is now mild mass effect and midline shift to the left by 3 mm. 2. No significant change in the small left-sided subdural hematoma in the left temporal fossa. 3. Improved bilateral ventricular hemorrhage 4. No significant changes in the bilateral hemorrhagic contusions. Kodi Bridges MD on September 02, 2016 at 0:04 Board Certified Radiologist. This report was verified electronically.
[2016-09-02] MEDS ORDERED: levETIRAcetam 1000 MG INJ 100 ML IV SCH (01:00)
[2016-09-02 01:17] LABS: BLOOD GAS BASE EXCESS 0.7 mmol/L (-2-2); BLOOD GAS CARBOXYHEMOGLOBIN 1.4 % (0-4); BLOOD GAS HCO3 24 mmol/L (22-26); BLOOD GAS METHEMOGLOBIN 0.9 % (0-2); BLOOD GAS O2 HGB SATURATION 93 % (90-100); BLOOD GAS OXYGEN CONTENT 13.6 Vol % (12.0-20.0); BLOOD GAS PCO2 34 mmHg (38-42); BLOOD GAS PO2 75 mmHg (61-120); BLOOD GAS TOTAL HGB 10.3 G/DL (12.0-16.0); CRITICAL VALUE NO; TEMP CORR TO 98.6
[2016-09-02 01:18] LABS: DRAW SITE RT BRACHIAL; FIO2 50 %; LITER FLOW 6 L/M; NUMBER OF ARTERIAL PUNCTURES 1; OXYGEN DEVICE SIMPLE MASK; STAT YES
[2016-09-02 01:56] LABS: BICARBONATE 26.2 MEQ/L (21.0-32.0)
[2016-09-02] MEDS: POTASSIUM CHLOR 20 MEQ PREMIX 100 ML IV PRN (02:46)
[2016-09-02] MEDS: CHLORHEXIDINE GLUCONATE 2 % 1 PACK (2 CLOTHS) TOP SCH (04:00)
[2016-09-02 04:43] LABS: AUTOMATED NEUTROPHIL # 16.3 TH/MM3 (1.8-7.7); BASOPHIL # 0.1 TH/MM3 (0-0.2); BASOPHIL % 0.3 % (0.0-2.0); HEMATOCRIT 32.4 % (39.0-51.0); HEMO FLAGS DIFF FINAL; LYMPH % 1.8 % (9.0-44.0); LYMPHOCYTE # 0.3 TH/MM3 (1.0-4.8); MEAN CORPUSCULAR HEMOGLOBIN 30.3 PG (27.0-34.0); MEAN CORPUSCULAR HGB CONC 32.6 % (32.0-36.0); MONO % 4.4 % (0.0-8.0); NEUT % 93.5 % (16.0-70.0); PLATELET COUNT 198 TH/MM3 (150-450); RED BLOOD COUNT 3.48 MIL/MM3 (4.50-5.90); RED CELL DISTRIBUTION WIDTH 14.7 % (11.6-17.2); WHITE BLOOD COUNT 17.5 TH/MM3 (4.0-11.0)
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
[2016-09-02 05:11] LABS: ANION GAP 10 MEQ/L (5-15); AST (GOT) 23 U/L (15-37); BICARBONATE 26.4 MEQ/L (21.0-32.0); BLOOD UREA NITROGEN 21 MG/DL (7-18); CHLORIDE 114 MEQ/L (98-107); GLOMERULAR FILTRATION RATE 169 ML/MIN (>89); POTASSIUM 3.4 MEQ/L (3.5-5.1); SODIUM (NA) 150 MEQ/L (136-145)
[2016-09-02 05:12] LABS: ALT (GPT) 18 U/L (12-78)
[2016-09-02 05:14] LABS: ALKALINE PHOSPHATASE 76 U/L (45-117); TOTAL BILIRUBIN ADULT 1.7 MG/DL (0.2-1.0)
[2016-09-02] MEDS ORDERED: PROPOFOL 1000 MG/100 ML INJ 100 ML IV SCH (05:15)
[2016-09-02] MEDS: PIPERACIL-TAZO 4.5 GM PREMIX 100 ML IV SCH ×4 (05:15→22:51)
[2016-09-02] MEDS ORDERED: ROCURONIUM INJ 50 MG/5 ML VIAL IV ONE (05:15)
[2016-09-02] MEDS ORDERED: ETOMIDATE 20 MG/10 ML VIAL IV PUSH ONE (05:15)
[2016-09-02] MEDS ORDERED: SODIUM CHLOR 0.9% 1000 ML INJ 1,000 ML IV ONE (06:30)
[2016-09-02] MEDS ORDERED: TERBUTALINE INJ 1 MG/ML AMP SQ PRN (06:30)
[2016-09-02] MEDS ORDERED: NOREPINEPHRINE INJ 4 MG in SODIUM CHLOR 0.9% 250 ML INJ 246 ML IV SCH (06:30)
--- NOTE | 2016-09-02 06:34 | PD.PROCEDR ---
Procedure Note Procedure PROCEDURE NOTE PROCEDURE: Endotracheal intubation INDICATION: 09/02/16 DETAILS OF PROCEDURE: The patient was placed in optimal position and preoxygenated with 100% FiO2 via [id number]. Oximeter oxygen saturation of 99% was obtained prior to direct laryngoscopy. The patient was administered etomidate 20 mg IV, rocuronium 50 kg IV for RSI. Laryngoscopy was performed with a 4 glide scope blade and a grade I Cormack-Lehane view was obtained. On single attempt a size 8 endotracheal tube was visualized passing through the cords. Correct placement was confirmed with colorimetric CO2 detector. Breath sounds were equal bilaterally. No sounds auscultated over the stomach. The endotracheal tube was secured with a commercial tube akbar at a depth of 24 cm at the lips. The patient was connected to the ventilator. The patient tolerated the procedure well without any apparent complication. Oxygen saturations were maintained greater than 96% at all times. Stat chest x-ray was ordered. Kait Boyd MD Sep 02, 2016 06:34
--- NOTE | 2016-09-02 06:37 | PD.PROCEDR ---
Procedure Note Procedure DATE: 09/02/16 CENTRAL LINE PLACEMENT: Right subclavian vein. INDICATION: Central venous access CONSENT Procedure was performed emergently as patient is not capacitated, hypertensive and in need of vascular access. DESCRIPTION OF THE PROCEDURE The patient was placed in supine position, Trendelenburg. The skin was cleansed with Chloraprep 3. Additional barrier precautions included large sterile drape, sterile gloves, sterile gown, face mask, and hat. 1 % lidocaine was used for local anesthesia. One initial attempt at right subclavian access. Then used direct ultrasound guidance and on single attempt, the vein was accessed with an introducer needle. The guide wire was advanced and the tract was dilated. Using Seldinger technique a 7 Swedish 20 cm antimicrobial coated triple-lumen catheter was advanced to a depth of 18 centimeters. The guide wire was removed. All ports had good return of dark venous blood and flushed easily with saline. The central line was secured with 2.0 silk. A sterile dressing with antibiotic disc was applied. ESTIMATED BLOOD LOSS: Minimal COMPLICATIONS: No apparent complications. STAT chest x-ray is pending Kait Boyd MD Sep 02, 2016 06:37
[2016-09-02] MEDS: INSULIN ASPART SUPPLEMENTAL SCALE SQ SCH ×3 (07:00→18:16)
[2016-09-02] MEDS ORDERED: GLUCAGON 1 MG/ML VIAL OTHER PRN (07:00)
[2016-09-02] MEDS ORDERED: DEXTROSE 50% IN WATER 50 ML VIAL(D50) IV PRN (07:00)
[2016-09-02] MEDS: SODIUM CHLOR 0.9% 1000 ML INJ 1,000 ML IV SCH ×3 (07:15→22:52)
--- NOTE | 2016-09-02 07:27 | RADRPT ---
EXAM DATE/TIME: 09/02/2016 06:49 [place] COMPARISON: CHEST SINGLE AP, August 30, 2016, 15:16. INDICATIONS : Central line placement MEDICAL HISTORY : ICH SURGICAL HISTORY : None. ENCOUNTER: Subsequent ACUITY: 4 - 6 days PAIN SCORE: Non-responsive. LOCATION: Bilateral chest FINDINGS: Portable AP view the chest demonstrates a normal-sized cardiac silhouette. ETT distal tip is at the a ortic knob level. Feeding tube has been removed. Right subclavian central line distal tip is in the s uperior vena cava. No pneumothorax is visualized. There is stable pleural-parenchymal opacity at the left lung base obscuring the left hemidiaphragm. Persistent air space opacity is present at the right lung base. CONCLUSION: 1. Right subclavian central line distal tip is in the superior vena cava and no pneumothorax is visua lized. 2. Stable left basilar opacity likely representing pleural effusion with associated volume loss and/o r airspace consolidation. There is also stable airspace consolidation versus atelectasis at the right lung base. Tacos Henriquez MD on September 02, 2016 at 7:24 Board Certified Radiologist. This report was verified electronically.
[2016-09-02 07:46] LABS: BLOOD GAS BASE EXCESS 0.3 mmol/L (-2-2); BLOOD GAS CARBOXYHEMOGLOBIN 1.2 % (0-4); BLOOD GAS HCO3 24 mmol/L (22-26); BLOOD GAS METHEMOGLOBIN 0.9 % (0-2); BLOOD GAS O2 HGB SATURATION 98 % (90-100); BLOOD GAS OXYGEN CONTENT 15.1 Vol % (12.0-20.0); BLOOD GAS PCO2 35 mmHg (38-42); BLOOD GAS PO2 257 mmHg (61-120); BLOOD GAS TOTAL HGB 10.5 G/DL (12.0-16.0); TEMP CORR TO 98.6
[2016-09-02 07:47] LABS: CRITICAL VALUE NO; DRAW SITE LT RADIAL; FIO2 100 %; NUMBER OF ARTERIAL PUNCTURES 1; OXYGEN DEVICE VENTILATOR; ULNAR PULSE PRESENT; VENT SETTINGS PRVC/AC
[2016-09-02 07:48] LABS: STAT NO
[2016-09-02] MEDS: BACITRACIN OPHT OINT 3.5 GM TUBO SCH ×2 (09:00→21:00)
[2016-09-02] MEDS ORDERED: Vancomycin Consult Pharmacy 1 EA OTHER SCH (10:00)
[2016-09-02] MEDS: CHLORHEXIDINE 0.12% (ORAL KIT) 15 ML CUP MT SCH ×2 (10:22→21:01)
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
[2016-09-02] MEDS: VALPROATE INJ 250 MG in SODIUM CHLORIDE 0.9% INJ 100 ML IV SCH ×2 (10:44→20:58)
[2016-09-02] MEDS: FAMOTIDINE 20 MG/2 ML VIAL IV PUSH SCH ×2 (10:44→20:59)
[2016-09-02] MEDS: LIDOCAINE HCL 5% PATCH T-DERMAL SCH (10:44)
[2016-09-02] MEDS: SODIUM CHLORIDE 1 GRAM TAB PO SCH (11:00)
[2016-09-02] MEDS: ENOXAPARIN SODIUM 40 MG/0.4 ML SYRINGE SQ SCH ×2 (11:00→21:00)
[2016-09-02] MEDS: DOCUSATE SODIUM 50 MG/SENNA 8.6 MG TAB PO SCH ×2 (11:00→20:59)
[2016-09-02] MEDS: LACTULOSE SYRUP 20 GM/30 ML CUP PO SCH (11:01)
[2016-09-02] MEDS: POTASSIUM CHLORIDE 25 MEQ EFFERVESCENT TAB NG SCH ×2 (11:01→20:59)
[2016-09-02 11:16] LABS: BLOOD, URINE TRACE (NEG); GLUCOSE,URINE NEG (NEG); KETONE, URINE NEG (NEG); NITRITE,URINE NEG (NEG); URINE COLOR YELLOW (YELLW/STRAW)
[2016-09-02 11:17] LABS: COMMENT (UR) CATH-CULT NOT IND; CULTURE IF INDICATED CATH CULTURE NOT IND
--- NOTE | 2016-09-02 11:20 | HHI.PR ---
Neuropsych Emotional Emotional: UnabletoAssess: Emotional, Anxious/Fearful, Depressed/Sad, Hostile/ Resentful, Irritable/Angry/Frustrate, Labile, Constricted/Blunted Behavior Behavior: Unable to Asses: Behavior, Coping/Acceptance, Cooperative w/ Treatment, Motivation, Frustration Tolerance/[place], Impulsive/Agitated, Suicidal/ Homicidal Risk Cognitive Cognitive: Unable to Asses: Cognitive, Attention/Concentration, Confused/ Orientation, Insight/Awareness, Judgement/Problem-Solving, Memory Psychosocial Psychosocial: Intact: Psychosocial, Family/Other Adjustment, Realistic Expectation, Unable to Asses: Self-Esteem/Confidence Progress Notes/Response to Tx Contents of Sessions: Adjustment, Level of Consciousness Time with Patient: 30 minutes Premorbid psychological status Premorbid Cognitive, Emotional and Behavioral Status: Stable. The patient has high school and two years of college, and a solid solid work history prior to this injury. The patient has no psychiatric difficulties, as described above. Substance abuse history is unremarkable. He is and has one adult child living in [facility]. Behavioral Reactions of Patient and Family/Support System: Stable. The patient s family is experiencing ongoing issues of adjustment given the nature of the injury, and this aspect of recovery will require ongoing monitoring. Emotional/Behavioral Status of Patient and Family/Support System: Stable. Pertinent issues, if appropriate to this patients clinical care, are described in detail above. Maximizing acute care outcome It is recommended that the patient be monitored for emergent behavioral impulsivity as the medical condition evolves. This patients neuropathological challenges may limit their rehabilitation potential going forward, and these challenges will require specialized therapeutic skills to maximize outcome. Additionally, the patients family is experiencing ongoing issues of adjustment given the traumatic nature of the injury, and they will benefit from ongoing psychological assistance. Anticipated Problems Ongoing areas of concern will include behavioral impulsivity, lack of insight and judgment, which is expected to improve with time and treatment. Presently , the patient is following two-step commands. Treatment Plan This clinician will continue to follow with you throughout the course of this patients acute care treatment, and I will be available to meet with the patient s family/support system to facilitate their understanding and the ongoing care of their family member. The goals of neuropsychological intervention shall be both educational and supportive to the family/support system as is deemed clinically appropriate. [facility] Level: IV:Confused/Agitated-maximal assist Impression This man suffered a severe traumatic brain injury based on the neuroimaging results, although his initial GCS score predicted otherwise. Since his admission, he has experienced unexplained mental status changes, which are attributable to his current course of recovery, and as such is interpreted as the expected course of recovery following brain injury. Diagnosis: (1) Major neurocognitive disorder as late effect of traumatic brain injury with behavioral disturbance Status: Acute Progress Note Narrative Ongoing follow-up of patient seen during daily trauma rounds. This is day 9 post injury. The patient experienced a medical setback yesterday. From what trauma team has pieced together, this patient aspirated while coughing up his Dobbhoff tube yesterday resulting in a respiratory distress episode, and experienced mental status changes from the hypoxia. He did undergo follow-up head CT that was notable for all previously identified areas of neuropathology. He is scheduled to undergo EEG to check for subclinical seizure disorder. He is now intubated and restrained, and on Valproic Acid 500 BID. He was unable to be aroused on rounds, which later was attributable to him being given a pain medication for some unknown reason during the night. In spite of his sedation, he is still considered a [place] IV. I will continue to follow. Breezy Palma PhD Sep 02, 2016 11:20 am
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
[2016-09-02] MEDS: VANCOMYCIN INJ 1,500 MG in SODIUM CHLORID 0.9% 500 ML INJ 500 ML IV SCH (14:35)
--- NOTE | 2016-09-02 17:21 | ECHRPT ---
Indication: TRAUMA PATIENT CONCLUSIONS The left ventricular systolic function is moderately reduced with an estimated ejection fraction in the range of 40-45%. Hypokinetic mid-anterior wall motion and apical. There is mild to moderate tricuspid valve regurgitation. There is a moderate pericardial effusion present. No hemodynamically significant echocardiographic features were observed (no pre-tamponade physiology). No RV collapse in diastole BP: / HR: 100 Rhythm: Sinus MEASUREMENTS (Male / Female) Normal Values Technical Quality:Good 2D ECHO LV Diastolic Diameter PLAX 4.3 cm 4.2 - 5.9 / 3.9 - 5.3 cm LV Systolic Diameter PLAX 3.6 cm IVS Diastolic Thickness 1.1 cm 0.6 - 1.0 / 0.6 - 0.9 cm LVPW Diastolic Thickness 1.1 cm 0.6 - 1.0 / 0.6 - 0.9 cm LV Relative Wall Thickness 0.5 LVOT Diameter 2.0 cm M-MODE Aortic Root Diameter MM 3.4 cm LA Systolic Diameter MM 2.8 cm LA Ao Ratio MM 0.8 AV Cusp Separation MM 1.9 cm DOPPLER AV Peak Velocity 132.0 cm/s AV Peak Gradient 7.0 mmHg LVOT Peak Velocity 125.0 cm/s LVOT Peak Gradient 6.3 mmHg AV Area Cont Eq pk 3.0 cm TR Peak Velocity 193.0 cm/s TR Peak Gradient 14.9 mmHg PV Peak Velocity 121.0 cm/s PV Peak Gradient 5.9 mmHg FINDINGS LEFT VENTRICLE The left ventricular systolic function is moderately reduced with an estimated ejection fraction in the range of 40-45%. Wall thickness is measured at the upper limits of normal. Normal left ventricular size. Hypokinetic mid-anterior wall motion and apical. RIGHT VENTRICLE Normal right ventricular size and systolic function. No RV collapse in diastole LEFT ATRIUM The left atrial size is normal. RIGHT ATRIUM The right atrial size is normal. ATRIAL SEPTUM The interatrial septum not well visualized. AORTA The aortic root and proximal ascending aorta are not well visualized. MITRAL VALVE Structurally normal mitral valve. No mitral valve stenosis or regurgitation. AORTIC VALVE Trileaflet aortic valve. No aortic valve stenosis or regurgitation. TRICUSPID VALVE There is mild to moderate tricuspid valve regurgitation. The estimated pulmonary arterial pressure is 25 mmHg. PULMONARY VALVE The pulmonary valve is not well visualized. VESSELS The inferior vena cava is normal in size. PERICARDIUM There is a moderate pericardial effusion present. No hemodynamically significant echocardiographic features were observed (no pre-tamponade physiology). Rico Ballard DO (Electronically Signed) Final Date:02 September 2016 17:20
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
[2016-09-02] MEDS: REMOVE OLD LIDOCAINE PATCH T-DERMAL SCH (20:59)
[2016-09-02] MEDS ORDERED: levETIRAcetam INJ 500 MG in SODIUM CHLORIDE 0.9% INJ 100 ML IV SCH (21:00)
[2016-09-02] MEDS: ACETAMINOPHEN 1000 MG/100 ML VIAL IV PRN (22:53)
[2016-09-03] VITALS (17 sets, daily range): BP systolic 96–130; BP diastolic 55–71; PULSE 98–131; RESP 21–27; TEMP 98.4–99.7; O2SAT 97–100
[2016-09-03] MEDS: POTASSIUM CHLOR 40 MEQ PREMIX 100 ML IV PRN ×2 (01:20→04:38)
[2016-09-03] MEDS: INSULIN ASPART SUPPLEMENTAL SCALE SQ SCH ×4 (01:23→19:00)
[2016-09-03] MEDS: CHLORHEXIDINE GLUCONATE 2 % 1 PACK (2 CLOTHS) TOP SCH (04:00)
[2016-09-03] MEDS: PIPERACIL-TAZO 4.5 GM PREMIX 100 ML IV SCH ×4 (04:38→23:56)
[2016-09-03 04:41] LABS: AUTOMATED NEUTROPHIL # 14.4 TH/MM3 (1.8-7.7); BASOPHIL # 0.1 TH/MM3 (0-0.2); BASOPHIL % 0.7 % (0.0-2.0); HEMATOCRIT 24.9 % (39.0-51.0); HEMO FLAGS DIFF FINAL; LYMPHOCYTE # 0.3 TH/MM3 (1.0-4.8); MEAN CELL VOLUME 92.4 FL (80.0-100.0); MEAN CORPUSCULAR HEMOGLOBIN 31.2 PG (27.0-34.0); MEAN CORPUSCULAR HGB CONC 33.8 % (32.0-36.0); MONO % 4.4 % (0.0-8.0); NEUT % 92.9 % (16.0-70.0); PLATELET COUNT 154 TH/MM3 (150-450); RED CELL DISTRIBUTION WIDTH 15.4 % (11.6-17.2); WHITE BLOOD COUNT 15.5 TH/MM3 (4.0-11.0)
[2016-09-03] MEDS: VANCOMYCIN INJ 1,500 MG in SODIUM CHLORID 0.9% 500 ML INJ 500 ML IV SCH ×2 (05:04→14:49)
[2016-09-03 05:24] LABS: ALKALINE PHOSPHATASE 68 U/L (45-117); ALT (GPT) 15 U/L (12-78); ANION GAP 6 MEQ/L (5-15); AST (GOT) 17 U/L (15-37); BICARBONATE 26.7 MEQ/L (21.0-32.0); BLOOD UREA NITROGEN 18 MG/DL (7-18); CHLORIDE 118 MEQ/L (98-107); GLOMERULAR FILTRATION RATE 155 ML/MIN (>89); MAGNESIUM 1.9 MG/DL (1.5-2.5); POTASSIUM 3.3 MEQ/L (3.5-5.1); SODIUM (NA) 151 MEQ/L (136-145); TOTAL BILIRUBIN ADULT 1.2 MG/DL (0.2-1.0)
[2016-09-03 06:08] LABS: BLOOD GAS BASE EXCESS 0.5 mmol/L (-2-2); BLOOD GAS CARBOXYHEMOGLOBIN 1.1 % (0-4); BLOOD GAS HCO3 24 mmol/L (22-26); BLOOD GAS METHEMOGLOBIN 0.8 % (0-2); BLOOD GAS O2 HGB SATURATION 97 % (90-100); BLOOD GAS OXYGEN CONTENT 12.9 Vol % (12.0-20.0); BLOOD GAS PCO2 34 mmHg (38-42); BLOOD GAS PO2 128 mmHg (61-120); BLOOD GAS TOTAL HGB 9.3 G/DL (12.0-16.0); CRITICAL VALUE NO; OXYGEN DEVICE VENTILATOR; TEMP CORR TO 98.6
[2016-09-03 06:09] LABS: DRAW SITE RT RADIAL; FIO2 45 %; NUMBER OF ARTERIAL PUNCTURES 1; STAT NO; ULNAR PULSE PRESENT; VENT SETTINGS PRVC16/550/1.0/+5
[2016-09-03] MEDS: SODIUM CHLOR 0.9% 1000 ML INJ 1,000 ML IV SCH ×3 (07:15→22:13)
--- NOTE | 2016-09-03 07:34 | RADRPT ---
EXAM DATE/TIME: 09/03/2016 06:46 [place] COMPARISON: CHEST SINGLE AP, September 02, 2016, 6:49. INDICATIONS : Infiltrate MEDICAL HISTORY : ICH SURGICAL HISTORY : None. ENCOUNTER: Subsequent ACUITY: 4 - 6 days PAIN SCORE: Non-responsive. LOCATION: Bilateral chest FINDINGS: Endotracheal tube has been inserted and is in good position. Right subclavian central line and endotr acheal tube remain in good position. Persistent airspace disease is identified bilaterally. There is overall improvement in lung aeration. Left base remains consolidated. CONCLUSION: Interval placement of nasogastric tube which is in good position. Improving lung aeration however bilateral air space disease remains evident. Moody Bowen MD on September 03, 2016 at 7:32 Board Certified Radiologist. This report was verified electronically.
[2016-09-03] MEDS ORDERED: ACETAMINOPHEN 325 MG TAB PO PRN (10:15)
[2016-09-03] MEDS: FAMOTIDINE 20 MG/2 ML VIAL IV PUSH SCH ×2 (10:39→20:01)
[2016-09-03] MEDS: LIDOCAINE HCL 5% PATCH T-DERMAL SCH (10:39)
[2016-09-03] MEDS: SODIUM CHLORIDE 1 GRAM TAB PO SCH (10:39)
[2016-09-03] MEDS: ENOXAPARIN SODIUM 40 MG/0.4 ML SYRINGE SQ SCH ×2 (10:40→22:11)
[2016-09-03] MEDS: VALPROATE INJ 250 MG in SODIUM CHLORIDE 0.9% INJ 100 ML IV SCH ×2 (10:40→20:00)
[2016-09-03] MEDS: BACITRACIN OPHT OINT 3.5 GM TUBO SCH ×2 (10:41→20:00)
[2016-09-03] MEDS: POTASSIUM CHLORIDE 25 MEQ EFFERVESCENT TAB NG SCH ×2 (10:41→19:59)
[2016-09-03] MEDS: DOCUSATE SODIUM 50 MG/SENNA 8.6 MG TAB PO SCH ×2 (10:41→20:00)
[2016-09-03] MEDS: LACTULOSE SYRUP 20 GM/30 ML CUP PO SCH (10:41)
[2016-09-03] MEDS: CHLORHEXIDINE 0.12% (ORAL KIT) 15 ML CUP MT SCH ×2 (10:42→20:00)
[2016-09-03] MEDS: METOPROLOL TARTRATE 5 MG/5 ML VIAL IV PUSH PRN (10:46)
[2016-09-03] MEDS: POTASSIUM CHLOR 20 MEQ PREMIX 100 ML IV PRN (10:52)
[2016-09-03] MEDS ORDERED: RESP: ALBUTEROL 2.5 MG/IPRATROPIUM 0.5 MG NEB (SCH) NEB STA (10:54)
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
[2016-09-03] MEDS: ACETAMINOPHEN 1000 MG/100 ML VIAL IV PRN (14:02)
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
[2016-09-03] MEDS: RESP: ALBUTEROL 2.5 MG/IPRATROPIUM 0.5 MG NEB (SCH) NEB ×2 (17:14→23:17)
[2016-09-03] MEDS: PROPOFOL 1000 MG/100 ML INJ 100 ML IV SCH (18:11)
[2016-09-03] MEDS: REMOVE OLD LIDOCAINE PATCH T-DERMAL SCH (20:00)
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
[2016-09-04] VITALS (17 sets, daily range): BP systolic 100–128; BP diastolic 57–73; PULSE 77–124; RESP 18–31; TEMP 98.3–99.1; O2SAT 95–100
[2016-09-04] MEDS: INSULIN ASPART SUPPLEMENTAL SCALE SQ SCH ×3 (00:08→19:00)
[2016-09-04] MEDS ORDERED: PHARMACY ORDERED LAB ONE (02:45)
[2016-09-04] MEDS: CHLORHEXIDINE GLUCONATE 2 % 1 PACK (2 CLOTHS) TOP SCH (03:24)
[2016-09-04] MEDS: VANCOMYCIN INJ 1,500 MG in SODIUM CHLORID 0.9% 500 ML INJ 500 ML IV SCH ×2 (03:25→15:13)
[2016-09-04] MEDS: RESP: ALBUTEROL 2.5 MG/IPRATROPIUM 0.5 MG NEB (SCH) NEB ×4 (03:55→21:49)
[2016-09-04] MEDS: PIPERACIL-TAZO 4.5 GM PREMIX 100 ML IV SCH ×4 (04:09→21:52)
[2016-09-04] MEDS: PROPOFOL 1000 MG/100 ML INJ 100 ML IV SCH ×2 (05:08→21:54)
[2016-09-04 05:52] LABS: ANION GAP 9 MEQ/L (5-15); AST (GOT) 16 U/L (15-37); BICARBONATE 25.3 MEQ/L (21.0-32.0); BLOOD UREA NITROGEN 14 MG/DL (7-18); CHLORIDE 116 MEQ/L (98-107); GLOMERULAR FILTRATION RATE 197 ML/MIN (>89); POTASSIUM 3.2 MEQ/L (3.5-5.1); SODIUM (NA) 150 MEQ/L (136-145)
[2016-09-04 05:53] LABS: ALT (GPT) 14 U/L (12-78)
[2016-09-04 05:55] LABS: ALKALINE PHOSPHATASE 78 U/L (45-117); TOTAL BILIRUBIN ADULT 0.9 MG/DL (0.2-1.0)
[2016-09-04 06:08] LABS: AUTOMATED NEUTROPHIL # 11.9 TH/MM3 (1.8-7.7); BASOPHIL % 0.2 % (0.0-2.0); EOSINOPHIL % 0.4 % (0.0-4.0); HEMATOCRIT 24.3 % (39.0-51.0); HEMO FLAGS DIFF FINAL; LYMPH % 2.9 % (9.0-44.0); LYMPHOCYTE # 0.4 TH/MM3 (1.0-4.8); MEAN CELL VOLUME 93.1 FL (80.0-100.0); MEAN CORPUSCULAR HEMOGLOBIN 30.5 PG (27.0-34.0); MEAN CORPUSCULAR HGB CONC 32.8 % (32.0-36.0); MONO % 3.8 % (0.0-8.0); NEUT % 92.7 % (16.0-70.0); PLATELET COUNT 164 TH/MM3 (150-450); RED BLOOD COUNT 2.61 MIL/MM3 (4.50-5.90); RED CELL DISTRIBUTION WIDTH 15.6 % (11.6-17.2); WHITE BLOOD COUNT 12.8 TH/MM3 (4.0-11.0)
[2016-09-04] MEDS: POTASSIUM CHLOR 40 MEQ PREMIX 100 ML IV PRN ×2 (06:39→09:45)
[2016-09-04] MEDS: SODIUM CHLOR 0.9% 1000 ML INJ 1,000 ML IV SCH ×3 (07:15→21:53)
[2016-09-04] MEDS: CHLORHEXIDINE 0.12% (ORAL KIT) 15 ML CUP MT SCH ×2 (08:42→19:31)
[2016-09-04] MEDS: BACITRACIN OPHT OINT 3.5 GM TUBO SCH ×2 (08:43→19:56)
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
[2016-09-04] MEDS: LACTULOSE SYRUP 20 GM/30 ML CUP PO SCH (09:00)
[2016-09-04] MEDS: DOCUSATE SODIUM 50 MG/SENNA 8.6 MG TAB PO SCH ×2 (09:00→19:57)
[2016-09-04] MEDS: SODIUM CHLORIDE 1 GRAM TAB PO SCH (09:00)
[2016-09-04] MEDS: VALPROATE INJ 250 MG in SODIUM CHLORIDE 0.9% INJ 100 ML IV SCH ×2 (09:43→19:56)
[2016-09-04] MEDS: FAMOTIDINE 20 MG/2 ML VIAL IV PUSH SCH ×2 (09:43→19:56)
[2016-09-04] MEDS: LIDOCAINE HCL 5% PATCH T-DERMAL SCH (09:44)
[2016-09-04] MEDS: POTASSIUM CHLORIDE 25 MEQ EFFERVESCENT TAB NG SCH ×2 (09:44→19:56)
[2016-09-04] MEDS: ENOXAPARIN SODIUM 40 MG/0.4 ML SYRINGE SQ SCH ×2 (09:45→21:53)
[2016-09-04] MEDS: LABETALOL HCL 100 MG/20 ML VIAL IV PRN (10:30)
[2016-09-04] MEDS: FUROSEMIDE 40 MG/4 ML VIAL IV PUSH SCH (11:11)
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
[2016-09-04] MEDS: REMOVE OLD LIDOCAINE PATCH T-DERMAL SCH (19:57)
[2016-09-05] VITALS (20 sets, daily range): BP systolic 112–135; BP diastolic 62–80; PULSE 98–130; RESP 16–21; TEMP 98.1–99.8; O2SAT 95–100
[2016-09-05] MEDS: INSULIN ASPART SUPPLEMENTAL SCALE SQ SCH ×4 (00:52→18:41)
[2016-09-05] MEDS: VANCOMYCIN INJ 1,500 MG in SODIUM CHLORID 0.9% 500 ML INJ 500 ML IV SCH ×2 (02:09→15:10)
[2016-09-05] MEDS: CHLORHEXIDINE GLUCONATE 2 % 1 PACK (2 CLOTHS) TOP SCH (02:26)
[2016-09-05] MEDS: oxyCODONE/ACETAMINOPHEN 5 MG/325 MG TAB PO PRN (03:15)
[2016-09-05] MEDS: RESP: ALBUTEROL 2.5 MG/IPRATROPIUM 0.5 MG NEB (SCH) NEB ×4 (03:30→22:05)
[2016-09-05] MEDS: PIPERACIL-TAZO 4.5 GM PREMIX 100 ML IV SCH ×4 (04:42→22:43)
[2016-09-05 05:12] LABS: AUTOMATED NEUTROPHIL # 7.8 TH/MM3 (1.8-7.7); BASOPHIL % 0.2 % (0.0-2.0); EOSINOPHIL # 0.1 TH/MM3 (0-0.4); EOSINOPHIL % 0.9 % (0.0-4.0); HEMATOCRIT 22.2 % (39.0-51.0); HEMO FLAGS DIFF FINAL; LYMPH % 3.8 % (9.0-44.0); LYMPHOCYTE # 0.3 TH/MM3 (1.0-4.8); MEAN CELL VOLUME 91.6 FL (80.0-100.0); MEAN CORPUSCULAR HGB CONC 33.8 % (32.0-36.0); MONO % 6.8 % (0.0-8.0); NEUT % 88.3 % (16.0-70.0); PLATELET COUNT 179 TH/MM3 (150-450); RED BLOOD COUNT 2.42 MIL/MM3 (4.50-5.90); RED CELL DISTRIBUTION WIDTH 15.3 % (11.6-17.2); WHITE BLOOD COUNT 8.9 TH/MM3 (4.0-11.0)
[2016-09-05 05:29] LABS: BICARBONATE 27.6 MEQ/L (21.0-32.0); POTASSIUM 3.7 MEQ/L (3.5-5.1)
--- NOTE | 2016-09-05 06:31 | RADRPT ---
EXAM DATE/TIME: 09/05/2016 05:27 [facility] COMPARISON: CHEST SINGLE AP, September 03, 2016, 6:46. INDICATIONS : Respiratory status. MEDICAL HISTORY : None. SURGICAL HISTORY : None. ENCOUNTER: Subsequent ACUITY: 3 days PAIN SCORE: Non-responsive. LOCATION: Bilateral chest FINDINGS: Endotracheal tube, nasogastric tube and right subclavian central line are stable. There is worsening vascular congestion and interstitial prominence throughout with persistent consolidation and effusion at the left base. Cardiac contours are grossly stable. CONCLUSION: Some interval worsening in aeration. Tacos Rees MD on September 05, 2016 at 6:29 Board Certified Radiologist. This report was verified electronically.
[2016-09-05] MEDS: FUROSEMIDE 40 MG/4 ML VIAL IV PUSH SCH (08:46)
[2016-09-05] MEDS: VALPROATE INJ 250 MG in SODIUM CHLORIDE 0.9% INJ 100 ML IV SCH ×2 (08:46→19:57)
[2016-09-05] MEDS: FAMOTIDINE 20 MG/2 ML VIAL IV PUSH SCH ×2 (08:47→19:57)
[2016-09-05] MEDS: POTASSIUM CHLORIDE 25 MEQ EFFERVESCENT TAB NG SCH ×2 (08:48→19:57)
[2016-09-05] MEDS: DOCUSATE SODIUM 50 MG/SENNA 8.6 MG TAB PO SCH ×2 (08:49→19:57)
[2016-09-05] MEDS: SODIUM CHLORIDE 1 GRAM TAB PO SCH (08:49)
[2016-09-05] MEDS: LACTULOSE SYRUP 20 GM/30 ML CUP PO SCH (08:49)
[2016-09-05] MEDS: LIDOCAINE HCL 5% PATCH T-DERMAL SCH (08:50)
[2016-09-05] MEDS: CHLORHEXIDINE 0.12% (ORAL KIT) 15 ML CUP MT SCH ×2 (08:50→20:01)
[2016-09-05] MEDS: BACITRACIN OPHT OINT 3.5 GM TUBO SCH ×2 (08:51→20:01)
[2016-09-05] MEDS: SODIUM CHLOR 0.9% 1000 ML INJ 1,000 ML IV SCH ×3 (08:51→22:43)
[2016-09-05] MEDS: ENOXAPARIN SODIUM 40 MG/0.4 ML SYRINGE SQ SCH ×2 (11:00→21:11)
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
[2016-09-05] MEDS ORDERED: MIDAZOLAM HCL 5 MG/5 ML VIAL IV PUSH ONE (16:45)
[2016-09-05] MEDS ORDERED: ROCURONIUM INJ 50 MG/5 ML VIAL IV ONE (16:45)
[2016-09-05] MEDS ORDERED: fentaNYL CITRATE 250 MCG/5 ML AMP IV PUSH ONE (16:45)
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
--- NOTE | 2016-09-05 17:18 | PD.PROCEDR ---
Procedure Note Procedure Procedure: diagnostic and therapeutic bronchoscopy with BAL Indication: worsening bilateral infiltrates left more than right, pneumonia, obtain BAL Procedure: Informed consent was obtained from the . The bronchoscope was advanced through the ETT into sung, which appeared normal. Then advanced into the left main stem and subsegmental bronchi in the left upper lobe, lingula and lower lobe was visualized. There was moderate yellowish white thick secretions in the main bronchus and subsegmental bronchi which was removed with multiple lavages and BAL collected. Then the bronchoscope was introduced into the right lung. Right main bronchus was partially obstructed with large amount of thick white secretions which were removed by multiple suctioning and lavage. Moderate amount of secretions removed from the subsegmental bronchi of right lower lobe and middle lobe. Right upper lobe was devoid of any major secretions. The patient tolerated the procedure well without evidence of desaturation or complications. There was no significant blood loss Urszula Balderrama MD Sep 05, 2016 17:18
[2016-09-05] MEDS: METOPROLOL TARTRATE 5 MG/5 ML VIAL IV PUSH PRN (20:00)
[2016-09-05] MEDS: REMOVE OLD LIDOCAINE PATCH T-DERMAL SCH (20:01)
[2016-09-06] VITALS (19 sets, daily range): BP systolic 109–141; BP diastolic 56–78; PULSE 107–140; RESP 18–24; TEMP 98–99.4; O2SAT 97–100
[2016-09-06] MEDS: INSULIN ASPART SUPPLEMENTAL SCALE SQ SCH ×4 (01:00→19:00)
[2016-09-06] MEDS ORDERED: PHARMACY ORDERED LAB ONE (02:45)
[2016-09-06] MEDS: CHLORHEXIDINE GLUCONATE 2 % 1 PACK (2 CLOTHS) TOP SCH (03:24)
[2016-09-06] MEDS: VANCOMYCIN INJ 1,500 MG in SODIUM CHLORID 0.9% 500 ML INJ 500 ML IV SCH (03:24)
[2016-09-06] MEDS: RESP: ALBUTEROL 2.5 MG/IPRATROPIUM 0.5 MG NEB (SCH) NEB ×4 (03:47→21:21)
[2016-09-06] MEDS: PIPERACIL-TAZO 4.5 GM PREMIX 100 ML IV SCH ×4 (04:06→23:20)
[2016-09-06] MEDS: oxyCODONE/ACETAMINOPHEN 5 MG/325 MG TAB PO PRN ×2 (04:08→16:20)
[2016-09-06 04:27] LABS: AUTOMATED NEUTROPHIL # 6.7 TH/MM3 (1.8-7.7); BASOPHIL % 0.4 % (0.0-2.0); EOSINOPHIL % 0.5 % (0.0-4.0); HEMATOCRIT 26.1 % (39.0-51.0); HEMO FLAGS DIFF FINAL; LYMPHOCYTE # 0.3 TH/MM3 (1.0-4.8); MEAN CELL VOLUME 91.5 FL (80.0-100.0); MEAN CORPUSCULAR HEMOGLOBIN 30.5 PG (27.0-34.0); MEAN CORPUSCULAR HGB CONC 33.3 % (32.0-36.0); MONO % 8.9 % (0.0-8.0); NEUT % 86.2 % (16.0-70.0); PLATELET COUNT 244 TH/MM3 (150-450); RED BLOOD COUNT 2.86 MIL/MM3 (4.50-5.90); RED CELL DISTRIBUTION WIDTH 15.5 % (11.6-17.2); WHITE BLOOD COUNT 7.7 TH/MM3 (4.0-11.0)
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
[2016-09-06 05:07] LABS: ALKALINE PHOSPHATASE 92 U/L (45-117); ALT (GPT) 16 U/L (12-78); ANION GAP 7 MEQ/L (5-15); AST (GOT) 36 U/L (15-37); BLOOD UREA NITROGEN 17 MG/DL (7-18); CHLORIDE 106 MEQ/L (98-107); GLOMERULAR FILTRATION RATE 173 ML/MIN (>89); MAGNESIUM 1.8 MG/DL (1.5-2.5); POTASSIUM 3.5 MEQ/L (3.5-5.1); SODIUM (NA) 142 MEQ/L (136-145); TOTAL BILIRUBIN ADULT 0.6 MG/DL (0.2-1.0)
[2016-09-06 05:29] LABS: BLOOD GAS BASE EXCESS 3.6 mmol/L (-2-2); BLOOD GAS CARBOXYHEMOGLOBIN 1.3 % (0-4); BLOOD GAS HCO3 27 mmol/L (22-26); BLOOD GAS METHEMOGLOBIN 0.7 % (0-2); BLOOD GAS O2 HGB SATURATION 97 % (90-100); BLOOD GAS PCO2 39 mmHg (38-42); BLOOD GAS PO2 125 mmHg (61-120); BLOOD GAS TOTAL HGB 7.9 G/DL (12.0-16.0); TEMP CORR TO 98.6
[2016-09-06 05:30] LABS: CRITICAL VALUE NO; OXYGEN DEVICE VENTILATOR
[2016-09-06 05:33] LABS: DRAW SITE LT BRACHIAL; FIO2 35 %; NUMBER OF ARTERIAL PUNCTURES 1; STAT NO; ULNAR PULSE PRESENT; VENT SETTINGS PRVC/AC
[2016-09-06] MEDS: POTASSIUM CHLOR 40 MEQ PREMIX 100 ML IV PRN (06:18)
[2016-09-06] MEDS: SODIUM CHLOR 0.9% 1000 ML INJ 1,000 ML IV SCH (07:15)
[2016-09-06] MEDS: CHLORHEXIDINE 0.12% (ORAL KIT) 15 ML CUP MT SCH ×2 (07:58→20:31)
[2016-09-06] MEDS: BACITRACIN OPHT OINT 3.5 GM TUBO SCH ×2 (08:02→21:00)
[2016-09-06] MEDS: VALPROATE INJ 250 MG in SODIUM CHLORIDE 0.9% INJ 100 ML IV SCH ×2 (08:04→21:00)
[2016-09-06] MEDS: FUROSEMIDE 40 MG/4 ML VIAL IV PUSH SCH (08:06)
[2016-09-06] MEDS: SODIUM CHLORIDE 1 GRAM TAB PO SCH (08:07)
[2016-09-06] MEDS: DOCUSATE SODIUM 50 MG/SENNA 8.6 MG TAB PO SCH ×2 (08:07→21:00)
[2016-09-06] MEDS: FAMOTIDINE 20 MG/2 ML VIAL IV PUSH SCH ×2 (08:08→21:00)
[2016-09-06] MEDS: POTASSIUM CHLORIDE 25 MEQ EFFERVESCENT TAB NG SCH ×2 (08:09→21:00)
[2016-09-06] MEDS: LACTULOSE SYRUP 20 GM/30 ML CUP PO SCH (08:09)
[2016-09-06] MEDS: LIDOCAINE HCL 5% PATCH T-DERMAL SCH (08:28)
[2016-09-06] MEDS: ENOXAPARIN SODIUM 40 MG/0.4 ML SYRINGE SQ SCH ×2 (10:56→23:20)
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
--- NOTE | 2016-09-06 11:22 | HHI.PR ---
Neuropsych Progress Notes/Response to Tx Contents of Sessions: Adjustment, Level of Consciousness Time with Patient: 15 minutes Premorbid psychological status Premorbid Cognitive, Emotional and Behavioral Status: Stable. The patient has high school and two years of college, and a solid solid work history prior to this injury. The patient has no psychiatric difficulties, as described above. Substance abuse history is unremarkable. He is and has one adult child living in [facility]. Behavioral Reactions of Patient and Family/Support System: Stable. The patient s family is experiencing ongoing issues of adjustment given the nature of the injury, and this aspect of recovery will require ongoing monitoring. Emotional/Behavioral Status of Patient and Family/Support System: Stable. Pertinent issues, if appropriate to this patients clinical care, are described in detail above. Maximizing acute care outcome It is recommended that the patient be monitored for emergent behavioral impulsivity as the medical condition evolves. This patients neuropathological challenges may limit their rehabilitation potential going forward, and these challenges will require specialized therapeutic skills to maximize outcome. Additionally, the patients family is experiencing ongoing issues of adjustment given the traumatic nature of the injury, and they will benefit from ongoing psychological assistance. Anticipated Problems Ongoing areas of concern will include behavioral impulsivity, lack of insight and judgment, which is expected to improve with time and treatment. Presently , the patient is following two-step commands. Treatment Plan This clinician will continue to follow with you throughout the course of this patients acute care treatment, and I will be available to meet with the patient s family/support system to facilitate their understanding and the ongoing care of their family member. The goals of neuropsychological intervention shall be both educational and supportive to the family/support system as is deemed clinically appropriate. [facility] Level: IV:Confused/Agitated-maximal assist Impression This man suffered a severe traumatic brain injury based on the neuroimaging results, although his initial GCS score predicted otherwise. Since his admission, he has experienced unexplained mental status changes, which are attributable to his current course of recovery, and as such is interpreted as the expected course of recovery following brain injury. Diagnosis: (1) Major neurocognitive disorder as late effect of traumatic brain injury with behavioral disturbance Status: Acute Progress Note Narrative Ongoing follow-up of patient seen during daily trauma rounds. This is day 13 post injury. The patient is awake and following commands, although is intubated due to respiratory decline. He is on Valproic Acid 250 BID for agitation management, as he is considered [place] IV. I provided comfort and support to , who was bedside. I will continue to follow. Breezy Palma PhD Sep 06, 2016 11:21 am
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
[2016-09-06] MEDS ORDERED: POTASSIUM CHLORIDE 20 MEQ PWD PACKET PO ONE (12:00)
[2016-09-06] MEDS: MAGNESIUM SULFATE 1 GM PREMIX 100 ML IV SCH ×2 (12:07→13:14)
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
[2016-09-06] MEDS: VANCOMYCIN INJ 1,750 MG in SODIUM CHLORID 0.9% 500 ML INJ 500 ML IV SCH (16:06)
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
[2016-09-06] MEDS: REMOVE OLD LIDOCAINE PATCH T-DERMAL SCH (20:32)
[2016-09-07] VITALS (18 sets, daily range): BP systolic 85–138; BP diastolic 53–83; PULSE 110–133; RESP 12–22; TEMP 97.1–99.4; O2SAT 98–100
[2016-09-07] MEDS: oxyCODONE/ACETAMINOPHEN 5 MG/325 MG TAB PO PRN ×2 (00:32→08:26)
[2016-09-07] MEDS: INSULIN ASPART SUPPLEMENTAL SCALE SQ SCH ×4 (01:23→19:00)
[2016-09-07] MEDS: RESP: ALBUTEROL 2.5 MG/IPRATROPIUM 0.5 MG NEB (SCH) NEB ×4 (03:43→20:14)
[2016-09-07] MEDS: VANCOMYCIN INJ 1,750 MG in SODIUM CHLORID 0.9% 500 ML INJ 500 ML IV SCH (03:44)
[2016-09-07] MEDS: CHLORHEXIDINE GLUCONATE 2 % 1 PACK (2 CLOTHS) TOP SCH (03:47)
[2016-09-07] MEDS: PIPERACIL-TAZO 4.5 GM PREMIX 100 ML IV SCH ×4 (05:43→23:39)
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
[2016-09-07 06:28] LABS: AUTOMATED NEUTROPHIL # 6.4 TH/MM3 (1.8-7.7); BASOPHIL % 0.4 % (0.0-2.0); EOSINOPHIL # 0.1 TH/MM3 (0-0.4); EOSINOPHIL % 0.8 % (0.0-4.0); HEMATOCRIT 25.1 % (39.0-51.0); HEMO FLAGS DIFF FINAL; LYMPH % 4.4 % (9.0-44.0); LYMPHOCYTE # 0.3 TH/MM3 (1.0-4.8); MEAN CELL VOLUME 91.4 FL (80.0-100.0); MEAN CORPUSCULAR HEMOGLOBIN 31.5 PG (27.0-34.0); MEAN CORPUSCULAR HGB CONC 34.5 % (32.0-36.0); MONO % 11.6 % (0.0-8.0); NEUT % 82.8 % (16.0-70.0); PLATELET COUNT 281 TH/MM3 (150-450); RED BLOOD COUNT 2.75 MIL/MM3 (4.50-5.90); RED CELL DISTRIBUTION WIDTH 15.4 % (11.6-17.2); WHITE BLOOD COUNT 7.8 TH/MM3 (4.0-11.0)
[2016-09-07 06:45] LABS: ALT (GPT) 20 U/L (12-78); ANION GAP 5 MEQ/L (5-15); AST (GOT) 35 U/L (15-37); BICARBONATE 30.5 MEQ/L (21.0-32.0); BLOOD UREA NITROGEN 17 MG/DL (7-18); CHLORIDE 108 MEQ/L (98-107); GLOMERULAR FILTRATION RATE 151 ML/MIN (>89); MAGNESIUM 2.2 MG/DL (1.5-2.5); POTASSIUM 3.9 MEQ/L (3.5-5.1); SODIUM (NA) 143 MEQ/L (136-145)
[2016-09-07 06:48] LABS: ALKALINE PHOSPHATASE 92 U/L (45-117); TOTAL BILIRUBIN ADULT 0.5 MG/DL (0.2-1.0)
[2016-09-07] MEDS: CHLORHEXIDINE 0.12% (ORAL KIT) 15 ML CUP MT SCH ×2 (08:00→20:28)
[2016-09-07] MEDS: BACITRACIN OPHT OINT 3.5 GM TUBO SCH ×2 (08:24→20:33)
[2016-09-07] MEDS: SODIUM CHLORIDE 1 GRAM TAB PO SCH (08:25)
[2016-09-07] MEDS: FUROSEMIDE 40 MG/4 ML VIAL IV PUSH SCH (08:27)
[2016-09-07] MEDS: FAMOTIDINE 20 MG/2 ML VIAL IV PUSH SCH ×2 (08:28→20:28)
[2016-09-07] MEDS: POTASSIUM CHLORIDE 25 MEQ EFFERVESCENT TAB NG SCH ×2 (08:28→20:34)
[2016-09-07] MEDS: LACTULOSE SYRUP 20 GM/30 ML CUP PO SCH (08:29)
[2016-09-07] MEDS: DOCUSATE SODIUM 50 MG/SENNA 8.6 MG TAB PO SCH ×2 (08:29→21:00)
[2016-09-07] MEDS: LIDOCAINE HCL 5% PATCH T-DERMAL SCH (09:00)
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
[2016-09-07] MEDS: VALPROATE INJ 250 MG in SODIUM CHLORIDE 0.9% INJ 100 ML IV SCH ×2 (10:05→20:28)
--- NOTE | 2016-09-07 10:21 | HHI.PR ---
Neuropsych Progress Notes/Response to Tx Contents of Sessions: Adjustment, Level of Consciousness Time with Patient: 15 minutes Premorbid psychological status Premorbid Cognitive, Emotional and Behavioral Status: Stable. The patient has high school and two years of college, and a solid solid work history prior to this injury. The patient has no psychiatric difficulties, as described above. Substance abuse history is unremarkable. He is and has one adult child living in [facility]. Behavioral Reactions of Patient and Family/Support System: Stable. The patient s family is experiencing ongoing issues of adjustment given the nature of the injury, and this aspect of recovery will require ongoing monitoring. Emotional/Behavioral Status of Patient and Family/Support System: Stable. Pertinent issues, if appropriate to this patients clinical care, are described in detail above. Maximizing acute care outcome It is recommended that the patient be monitored for emergent behavioral impulsivity as the medical condition evolves. This patients neuropathological challenges may limit their rehabilitation potential going forward, and these challenges will require specialized therapeutic skills to maximize outcome. Additionally, the patients family is experiencing ongoing issues of adjustment given the traumatic nature of the injury, and they will benefit from ongoing psychological assistance. Anticipated Problems Ongoing areas of concern will include behavioral impulsivity, lack of insight and judgment, which is expected to improve with time and treatment. Presently , the patient is following two-step commands. Treatment Plan This clinician will continue to follow with you throughout the course of this patients acute care treatment, and I will be available to meet with the patient s family/support system to facilitate their understanding and the ongoing care of their family member. The goals of neuropsychological intervention shall be both educational and supportive to the family/support system as is deemed clinically appropriate. [facility] Level: IV:Confused/Agitated-maximal assist Impression This man suffered a severe traumatic brain injury based on the neuroimaging results, although his initial GCS score predicted otherwise. Since his admission, he has experienced unexplained mental status changes, which are attributable to his current course of recovery, and as such is interpreted as the expected course of recovery following brain injury. Diagnosis: (1) Major neurocognitive disorder as late effect of traumatic brain injury with behavioral disturbance Status: Acute Progress Note Narrative Ongoing follow-up of patient seen during daily trauma rounds. This is day 14 post injury. The patient is improving neurobehaviorally. He is to be extubated today, and he is on no sedation. His RLE is exhibiting minimal ability to volitionally move. The patient is behaviorally managed on valproic acid 250 BID. He is considered a medicated [place] IV. I will continue to follow. Breezy Palma PhD Sep 07, 2016 10:21 am
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
[2016-09-07] MEDS: ENOXAPARIN SODIUM 40 MG/0.4 ML SYRINGE SQ SCH ×2 (11:11→21:31)
[2016-09-07] MEDS ORDERED: BUMETANIDE INJ 1 MG/4 ML VIAL IV PUSH ONE (12:00)
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
[2016-09-07] MEDS ORDERED: RESP: RACEPINEPHRINE 2.25% 0.5 ML NEB NEB PRN (18:30)
[2016-09-07] MEDS: REMOVE OLD LIDOCAINE PATCH T-DERMAL SCH (21:00)
[2016-09-07] MEDS: methylPREDNISolone SOD SUCC 40 MG/1 ML VIAL IV PUSH SCH (21:32)
[2016-09-08] VITALS (18 sets, daily range): BP systolic 125–163; BP diastolic 70–97; PULSE 100–134; RESP 18–35; TEMP 97.5–99.9; O2SAT 95–100
[2016-09-08] MEDS: INSULIN ASPART SUPPLEMENTAL SCALE SQ SCH ×4 (01:41→18:34)
[2016-09-08] MEDS: CHLORHEXIDINE GLUCONATE 2 % 1 PACK (2 CLOTHS) TOP SCH (02:41)
[2016-09-08] MEDS ORDERED: PHARMACY ORDERED LAB ONE (02:45)
[2016-09-08] MEDS: oxyCODONE/ACETAMINOPHEN 5 MG/325 MG TAB PO PRN ×2 (03:13→17:30)
[2016-09-08] MEDS: RESP: ALBUTEROL 2.5 MG/IPRATROPIUM 0.5 MG NEB (SCH) NEB ×4 (03:49→20:48)
[2016-09-08 04:02] LABS: BASOPHIL % 0.3 % (0.0-2.0); HEMATOCRIT 27.4 % (39.0-51.0); HEMO FLAGS DIFF FINAL; LYMPH % 2.3 % (9.0-44.0); LYMPHOCYTE # 0.2 TH/MM3 (1.0-4.8); MEAN CELL VOLUME 90.2 FL (80.0-100.0); MEAN CORPUSCULAR HEMOGLOBIN 30.6 PG (27.0-34.0); MONO % 4.7 % (0.0-8.0); NEUT % 92.7 % (16.0-70.0); PLATELET COUNT 378 TH/MM3 (150-450); RED BLOOD COUNT 3.03 MIL/MM3 (4.50-5.90); RED CELL DISTRIBUTION WIDTH 15.6 % (11.6-17.2); WHITE BLOOD COUNT 7.6 TH/MM3 (4.0-11.0)
[2016-09-08 04:31] LABS: ALT (GPT) 25 U/L (12-78); ANION GAP 7 MEQ/L (5-15); AST (GOT) 38 U/L (15-37); BICARBONATE 32.2 MEQ/L (21.0-32.0); BLOOD UREA NITROGEN 22 MG/DL (7-18); CHLORIDE 104 MEQ/L (98-107); GLOMERULAR FILTRATION RATE 122 ML/MIN (>89); MAGNESIUM 2.2 MG/DL (1.5-2.5); SODIUM (NA) 143 MEQ/L (136-145)
[2016-09-08 04:33] LABS: ALKALINE PHOSPHATASE 102 U/L (45-117); TOTAL BILIRUBIN ADULT 0.5 MG/DL (0.2-1.0)
[2016-09-08] MEDS: PIPERACIL-TAZO 4.5 GM PREMIX 100 ML IV SCH ×4 (05:04→23:37)
[2016-09-08] MEDS: methylPREDNISolone SOD SUCC 40 MG/1 ML VIAL IV PUSH SCH ×3 (05:05→21:41)
[2016-09-08 05:14] LABS: BLOOD GAS BASE EXCESS 6.2 mmol/L (-2-2); BLOOD GAS CARBOXYHEMOGLOBIN 1.2 % (0-4); BLOOD GAS HCO3 30 mmol/L (22-26); BLOOD GAS METHEMOGLOBIN 0.5 % (0-2); BLOOD GAS O2 HGB SATURATION 98 % (90-100); BLOOD GAS OXYGEN CONTENT 13.4 Vol % (12.0-20.0); BLOOD GAS PCO2 39 mmHg (38-42); BLOOD GAS PO2 135 mmHg (61-120); BLOOD GAS TOTAL HGB 9.6 G/DL (12.0-16.0); CRITICAL VALUE NO; DRAW SITE RT RADIAL; FIO2 35 %; NUMBER OF ARTERIAL PUNCTURES 1; OXYGEN DEVICE VENTILATOR; TEMP CORR TO 98.6; VENT SETTINGS CPAP 5/+5/35%
[2016-09-08 05:15] LABS: STAT NO; ULNAR PULSE PRESENT
--- NOTE | 2016-09-08 06:25 | RADRPT ---
EXAM DATE/TIME: 09/08/2016 05:00 [facility] COMPARISON: CHEST SINGLE AP, September 07, 2016, 5:21. INDICATIONS : Shortness of breath. MEDICAL HISTORY : None. SURGICAL HISTORY : None. ENCOUNTER: Subsequent ACUITY: 2 weeks PAIN SCORE: Non-responsive. LOCATION: Bilateral chest FINDINGS: Portable AP view of the chest demonstrates a normal-sized cardiac silhouette. ETT, NG tube, and right subclavian central line remain present. There is stable left basilar opacity. No pneumothorax is vis ualized. CONCLUSION: Stable chest x-ray with left basilar opacity. Tacos Henriquez MD on September 08, 2016 at 6:23 Board Certified Radiologist. This report was verified electronically.
[2016-09-08] MEDS: FAMOTIDINE 20 MG/2 ML VIAL IV PUSH SCH ×2 (08:45→20:08)
[2016-09-08] MEDS: FUROSEMIDE 40 MG/4 ML VIAL IV PUSH SCH (08:45)
[2016-09-08] MEDS: DOCUSATE SODIUM 50 MG/SENNA 8.6 MG TAB PO SCH ×2 (08:46→20:08)
[2016-09-08] MEDS: LACTULOSE SYRUP 20 GM/30 ML CUP PO SCH (08:46)
[2016-09-08] MEDS: POTASSIUM CHLORIDE 25 MEQ EFFERVESCENT TAB NG SCH ×2 (08:46→20:08)
[2016-09-08] MEDS: SODIUM CHLORIDE 1 GRAM TAB PO SCH (08:47)
[2016-09-08] MEDS: VALPROATE INJ 250 MG in SODIUM CHLORIDE 0.9% INJ 100 ML IV SCH ×2 (08:48→20:07)
[2016-09-08] MEDS: ENOXAPARIN SODIUM 40 MG/0.4 ML SYRINGE SQ SCH (08:48)
[2016-09-08] MEDS: CHLORHEXIDINE 0.12% (ORAL KIT) 15 ML CUP MT SCH ×2 (08:49→20:10)
[2016-09-08] MEDS: ENOXAPARIN SODIUM 30 MG/0.3 ML SYRINGE SQ SCH ×2 (10:00→21:41)
[2016-09-08] MEDS: RESP: RACEPINEPHRINE 2.25% 0.5 ML NEB NEB SCH ×4 (11:38→22:11)
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
[2016-09-08] MEDS: BACITRACIN OPHT OINT 3.5 GM TUBO SCH (20:09)
[2016-09-09] VITALS (22 sets, daily range): BP systolic 96–143; BP diastolic 55–78; PULSE 106–152; RESP 15–36; TEMP 98–98.9; O2SAT 95–100
[2016-09-09] MEDS ORDERED: LIDOCAINE HCL 5% PATCH T-DERMAL SCH
[2016-09-09] MEDS: LIDOCAINE HCL 5% PATCH T-DERMAL SCH
[2016-09-09] MEDS: INSULIN ASPART SUPPLEMENTAL SCALE SQ SCH ×4 (00:21→18:30)
[2016-09-09] MEDS: RESP: RACEPINEPHRINE 2.25% 0.5 ML NEB NEB SCH ×5 (03:22→23:17)
[2016-09-09] MEDS: RESP: ALBUTEROL 2.5 MG/IPRATROPIUM 0.5 MG NEB (SCH) NEB ×4 (03:22→20:49)
[2016-09-09] MEDS: CHLORHEXIDINE GLUCONATE 2 % 1 PACK (2 CLOTHS) TOP SCH (04:00)
[2016-09-09] MEDS: PIPERACIL-TAZO 4.5 GM PREMIX 100 ML IV SCH ×2 (05:02→11:10)
[2016-09-09] MEDS: methylPREDNISolone SOD SUCC 40 MG/1 ML VIAL IV PUSH SCH ×3 (05:03→22:18)
[2016-09-09] MEDS: oxyCODONE/ACETAMINOPHEN 5 MG/325 MG TAB PO PRN ×2 (05:03→18:30)
[2016-09-09 05:51] LABS: MEAN CELL VOLUME 91.1 FL (80.0-100.0); MEAN CORPUSCULAR HEMOGLOBIN 29.5 PG (27.0-34.0); MEAN CORPUSCULAR HGB CONC 32.4 % (32.0-36.0); PLATELET COUNT 546 TH/MM3 (150-450); RED BLOOD COUNT 3.18 MIL/MM3 (4.50-5.90); RED CELL DISTRIBUTION WIDTH 15.6 % (11.6-17.2); REVIEW FLAG FINAL; WHITE BLOOD COUNT 12.7 TH/MM3 (4.0-11.0)
[2016-09-09 06:08] LABS: BICARBONATE 25.9 MEQ/L (21.0-32.0); POTASSIUM 3.5 MEQ/L (3.5-5.1)
--- NOTE | 2016-09-09 06:28 | RADRPT ---
EXAM DATE/TIME: 09/09/2016 05:11 [facility] COMPARISON: CHEST SINGLE AP, September 08, 2016, 5:00. INDICATIONS : Respiratory distress. MEDICAL HISTORY : None. SURGICAL HISTORY : None. ENCOUNTER: Subsequent ACUITY: 2 weeks PAIN SCORE: Non-responsive. LOCATION: Bilateral chest FINDINGS: Portable AP view of the chest demonstrates a normal-sized cardiac silhouette. Right subclavian centra l line, ETT, and NG tube remain present. There is stable pleural-parenchymal opacity at the left lung base. Patchy opacity in the right peripheral midlung zone also remains present. No pneumothorax is i dentified. CONCLUSION: Stable chest x-ray with small left basilar opacity. Tacos Henriquez MD on September 09, 2016 at 6:26 Board Certified Radiologist. This report was verified electronically.
[2016-09-09] MEDS: POTASSIUM CHLOR 40 MEQ PREMIX 100 ML IV PRN (06:57)
[2016-09-09] MEDS: METOPROLOL TARTRATE 5 MG/5 ML VIAL IV PUSH PRN ×2 (07:04→20:38)
[2016-09-09] MEDS: CHLORHEXIDINE 0.12% (ORAL KIT) 15 ML CUP MT SCH ×2 (08:00→20:00)
[2016-09-09] MEDS: SODIUM CHLORIDE 1 GRAM TAB PO SCH (08:28)
[2016-09-09] MEDS: DOCUSATE SODIUM 50 MG/SENNA 8.6 MG TAB PO SCH ×2 (08:28→20:35)
[2016-09-09] MEDS: FUROSEMIDE 40 MG/4 ML VIAL IV PUSH SCH (08:29)
[2016-09-09] MEDS: POTASSIUM CHLORIDE 25 MEQ EFFERVESCENT TAB NG SCH ×2 (08:29→20:39)
[2016-09-09] MEDS: FAMOTIDINE 20 MG/2 ML VIAL IV PUSH SCH ×2 (08:30→20:38)
[2016-09-09] MEDS: LACTULOSE SYRUP 20 GM/30 ML CUP PO SCH (08:30)
[2016-09-09] MEDS: BACITRACIN OPHT OINT 3.5 GM TUBO SCH ×2 (08:30→20:39)
[2016-09-09] MEDS: ENOXAPARIN SODIUM 30 MG/0.3 ML SYRINGE SQ SCH ×2 (08:30→22:18)
[2016-09-09] MEDS: VALPROATE INJ 250 MG in SODIUM CHLORIDE 0.9% INJ 100 ML IV SCH ×2 (08:32→20:38)
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
--- NOTE | 2016-09-09 10:54 | ECHRPT ---
Indication: TRAUMA CONCLUSIONS The left ventricular systolic function is moderately reduced with an estimated ejection fraction in the range of 40-45%. Normal left ventricular size. Wall thickness is measured at the upper limits of normal. Suspect apical hypokinesis.There is mild to moderate tricuspid valve regurgitation. The estimated pulmonary arterial pressure is 31 mmHg. The pulmonary valve is not well visualized. There is a moderate pericardial effusion present. No tamponade. BP: / HR: 115 Rhythm: Sinus MEASUREMENTS (Male / Female) Normal Values Technical Quality:Fair 2D ECHO LV Diastolic Diameter PLAX 4.8 cm 4.2 - 5.9 / 3.9 - 5.3 cm LV Systolic Diameter PLAX 3.9 cm IVS Diastolic Thickness 1.2 cm 0.6 - 1.0 / 0.6 - 0.9 cm LVPW Diastolic Thickness 1.2 cm 0.6 - 1.0 / 0.6 - 0.9 cm LV Relative Wall Thickness 0.5 LVOT Diameter 2.1 cm M-MODE Aortic Root Diameter MM 3.0 cm LA Systolic Diameter MM 3.1 cm LA Ao Ratio MM 1.0 AV Cusp Separation MM 2.0 cm DOPPLER AV Peak Velocity 126.0 cm/s AV Peak Gradient 6.4 mmHg LVOT Peak Velocity 92.8 cm/s LVOT Peak Gradient 3.4 mmHg AV Area Cont Eq pk 2.6 cm LV E' Lateral Velocity 6.5 cm/s LV E' Septal Velocity 6.2 cm/s TR Peak Velocity 228.0 cm/s TR Peak Gradient 20.8 mmHg PV Peak Velocity 118.0 cm/s PV Peak Gradient 5.6 mmHg FINDINGS LEFT VENTRICLE The left ventricular systolic function is moderately reduced with an estimated ejection fraction in the range of 40-45%. Normal left ventricular size. Wall thickness is measured at the upper limits of normal. Suspect apical hypokinesis. RIGHT VENTRICLE Normal right ventricular size and systolic function. LEFT ATRIUM The left atrial size is normal. RIGHT ATRIUM The right atrial size is normal. ATRIAL SEPTUM Normal atrial septal thickness without atrial level shunting by limited color doppler interrogation. AORTA The aortic root and proximal ascending aorta are normal in size on limited imaging. MITRAL VALVE Structurally normal mitral valve. No mitral valve stenosis or regurgitation. AORTIC VALVE Trileaflet aortic valve. No aortic valve stenosis or regurgitation. TRICUSPID VALVE There is mild to moderate tricuspid valve regurgitation. The estimated pulmonary arterial pressure is 31 mmHg. PULMONARY VALVE The pulmonary valve is not well visualized. VESSELS The inferior vena cava is normal in size. PERICARDIUM There is a moderate pericardial effusion present. No tamponade. Otoniel Taylor MD (Electronically Signed) Final Date:09 September 2016 10:52
[2016-09-09] MEDS: REMOVE OLD LIDOCAINE PATCH T-DERMAL SCH (11:10)
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
[2016-09-09] MEDS: LEVOFLOXACIN 750 MG TAB PO SCH (14:00)
[2016-09-10] VITALS (15 sets, daily range): BP systolic 107–136; BP diastolic 64–88; PULSE 100–138; RESP 18–27; TEMP 98.1–99.8; O2SAT 94–99
[2016-09-10] MEDS: INSULIN ASPART SUPPLEMENTAL SCALE SQ SCH ×4 (01:00→19:00)
[2016-09-10] MEDS: LIDOCAINE HCL 5% PATCH T-DERMAL SCH (01:30)
[2016-09-10] MEDS: RESP: ALBUTEROL 2.5 MG/IPRATROPIUM 0.5 MG NEB (SCH) NEB ×4 (03:09→20:08)
[2016-09-10] MEDS: RESP: RACEPINEPHRINE 2.25% 0.5 ML NEB NEB SCH ×5 (03:09→23:45)
[2016-09-10] MEDS: CHLORHEXIDINE GLUCONATE 2 % 1 PACK (2 CLOTHS) TOP SCH ×2 (04:00→23:38)
--- NOTE | 2016-09-10 05:44 | RADRPT ---
EXAM DATE/TIME: 09/10/2016 04:38 [place] COMPARISON: CHEST SINGLE AP, September 09, 2016, 5:11. INDICATIONS : Shortness of breath MEDICAL HISTORY : None. SURGICAL HISTORY : None. ENCOUNTER: Subsequent ACUITY: 2 weeks PAIN SCORE: Non-responsive. LOCATION: Bilateral chest FINDINGS: Single AP view of the chest. Endotracheal tube and nasogastric tube no longer seen. Right subclavian central venous catheter remains in place. No change in left lower lobe consolidation versus atelectas is and left pleural effusion. No evidence of pneumothorax. CONCLUSION: Endotracheal tube and nasogastric tube no longer seen. Persistent left lower lung consolidation versu s atelectasis and left pleural effusion. Yogi Arcos MD on September 10, 2016 at 5:41 Board Certified Radiologist. This report was verified electronically.
[2016-09-10 06:03] LABS: AUTOMATED NEUTROPHIL # 12.3 TH/MM3 (1.8-7.7); BASOPHIL % 0.2 % (0.0-2.0); HEMO FLAGS DIFF FINAL; LYMPH % 2.5 % (9.0-44.0); LYMPHOCYTE # 0.3 TH/MM3 (1.0-4.8); MEAN CELL VOLUME 90.7 FL (80.0-100.0); MEAN CORPUSCULAR HEMOGLOBIN 29.1 PG (27.0-34.0); MEAN CORPUSCULAR HGB CONC 32.1 % (32.0-36.0); MONO % 5.3 % (0.0-8.0); PLATELET COUNT 536 TH/MM3 (150-450); RED BLOOD COUNT 3.09 MIL/MM3 (4.50-5.90); RED CELL DISTRIBUTION WIDTH 15.6 % (11.6-17.2); WHITE BLOOD COUNT 13.3 TH/MM3 (4.0-11.0)
[2016-09-10] MEDS: methylPREDNISolone SOD SUCC 40 MG/1 ML VIAL IV PUSH SCH ×2 (06:23→20:48)
[2016-09-10 06:26] LABS: ALT (GPT) 25 U/L (12-78); ANION GAP 9 MEQ/L (5-15); AST (GOT) 23 U/L (15-37); BICARBONATE 23.7 MEQ/L (21.0-32.0); BLOOD UREA NITROGEN 25 MG/DL (7-18); CHLORIDE 110 MEQ/L (98-107); GLOMERULAR FILTRATION RATE 145 ML/MIN (>89); MAGNESIUM 2.5 MG/DL (1.5-2.5); POTASSIUM 3.4 MEQ/L (3.5-5.1); SODIUM (NA) 143 MEQ/L (136-145)
[2016-09-10 06:28] LABS: ALKALINE PHOSPHATASE 102 U/L (45-117); TOTAL BILIRUBIN ADULT 0.5 MG/DL (0.2-1.0)
[2016-09-10] MEDS: POTASSIUM CHLOR 40 MEQ PREMIX 100 ML IV PRN (06:37)
[2016-09-10] MEDS: CHLORHEXIDINE 0.12% (ORAL KIT) 15 ML CUP MT SCH (08:00)
[2016-09-10] MEDS: LACTULOSE SYRUP 20 GM/30 ML CUP PO SCH (09:00)
[2016-09-10] MEDS: FUROSEMIDE 40 MG/4 ML VIAL IV PUSH SCH (09:12)
[2016-09-10] MEDS: DOCUSATE SODIUM 50 MG/SENNA 8.6 MG TAB PO SCH ×2 (09:13→20:51)
[2016-09-10] MEDS: ENOXAPARIN SODIUM 30 MG/0.3 ML SYRINGE SQ SCH ×2 (09:13→20:49)
[2016-09-10] MEDS: FAMOTIDINE 20 MG/2 ML VIAL IV PUSH SCH (09:13)
[2016-09-10] MEDS: SODIUM CHLORIDE 1 GRAM TAB PO SCH (09:13)
[2016-09-10] MEDS: POTASSIUM CHLORIDE 25 MEQ EFFERVESCENT TAB NG SCH ×2 (09:14→20:50)
[2016-09-10] MEDS: BACITRACIN OPHT OINT 3.5 GM TUBO SCH (09:15)
[2016-09-10] MEDS: VALPROATE INJ 250 MG in SODIUM CHLORIDE 0.9% INJ 100 ML IV SCH (09:19)
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
[2016-09-10] MEDS: REMOVE OLD LIDOCAINE PATCH T-DERMAL SCH (12:00)
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
[2016-09-10] MEDS: LEVOFLOXACIN 750 MG TAB PO SCH (14:00)
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
[2016-09-10] MEDS ORDERED: SODIUM CHLOR 0.9% 1000 ML INJ 1,000 ML IV SCH (18:15)
[2016-09-10] MEDS: VALPROIC ACID 250 MG CAP PO SCH (20:50)
[2016-09-10] MEDS: FAMOTIDINE 20 MG TAB PO SCH (20:51)
[2016-09-10] MEDS: ACETAMINOPHEN 1000 MG/100 ML VIAL IV PRN (21:27)
[2016-09-11] VITALS: BP 130/74; PULSE 115; RESP 20; TEMP 97.9; O2SAT 94
[2016-09-11] MEDS: LIDOCAINE HCL 5% PATCH T-DERMAL SCH (01:27)
[2016-09-11] MEDS: BACITRACIN OPHT OINT 3.5 GM TUBO SCH ×2 (01:27→08:30)
[2016-09-11] MEDS: INSULIN ASPART SUPPLEMENTAL SCALE SQ SCH ×3 (01:29→12:44)
[2016-09-11 04:00] VITALS: BP 133/75; PULSE 93; RESP 20; TEMP 97.9; O2SAT 96
[2016-09-11] MEDS: RESP: RACEPINEPHRINE 2.25% 0.5 ML NEB NEB SCH ×3 (04:35→11:38)
[2016-09-11] MEDS: RESP: ALBUTEROL 2.5 MG/IPRATROPIUM 0.5 MG NEB (SCH) NEB ×2 (04:35→10:38)
[2016-09-11] MEDS: DOCUSATE SODIUM 50 MG/SENNA 8.6 MG TAB PO SCH (08:27)
[2016-09-11] MEDS: FAMOTIDINE 20 MG TAB PO SCH (08:27)
[2016-09-11] MEDS: POTASSIUM CHLORIDE 25 MEQ EFFERVESCENT TAB NG SCH (08:28)
[2016-09-11] MEDS: methylPREDNISolone SOD SUCC 40 MG/1 ML VIAL IV PUSH SCH (08:28)
[2016-09-11] MEDS: LACTULOSE SYRUP 20 GM/30 ML CUP PO SCH (08:28)
[2016-09-11] MEDS: SODIUM CHLORIDE 1 GRAM TAB PO SCH (08:28)
[2016-09-11] MEDS: VALPROIC ACID 250 MG CAP PO SCH (08:28)
[2016-09-11 08:58] VITALS: BP 140/80; PULSE 100; RESP 16; TEMP 98.4; O2SAT 95
[2016-09-11] MEDS ORDERED: FUROSEMIDE 20 MG TAB PO SCH (09:00)
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
[2016-09-11] MEDS: ENOXAPARIN SODIUM 30 MG/0.3 ML SYRINGE SQ SCH (11:20)
[2016-09-11] MEDS: oxyCODONE/ACETAMINOPHEN 5 MG/325 MG TAB PO PRN ×2 (11:20→15:32)
[2016-09-11] MEDS: REMOVE OLD LIDOCAINE PATCH T-DERMAL SCH (12:00)
[2016-09-11] MEDS ORDERED: NOVOLOGSS SQ (12:52)
[2016-09-11] MEDS ORDERED: LEVA750T9 PO (12:52)
[2016-09-11] MEDS ORDERED: OXYC1TAB63 PO (12:52)
[2016-09-11] MEDS ORDERED: VALP250 PO (12:52)
[2016-09-11] MEDS ORDERED: FURO20TA PO (12:52)
[2016-09-11] MEDS ORDERED: ENOX30P SQ (12:52)
[2016-09-11] MEDS ORDERED: SENN1TAB PO (12:52)
[2016-09-11] MEDS ORDERED: LIDO5DIS5 T-DERMAL (12:52)
[2016-09-11] MEDS ORDERED: ACET1TAB86 PO (12:52)
[2016-09-11] MEDS ORDERED: KLYTECL NG (13:06)
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
[2016-09-11] MEDS: LEVOFLOXACIN 750 MG TAB PO SCH (15:32)
== END 2016-09-11 16:00 | DRG 85 ==
LOC: NEPI 11:54 → EDBD 13:08 → N03B 13:08 → N05A 09-10 18:49
PROVIDERS: ADMIT Surgery Trauma Surgery; ATTEND Surgery Trauma Surgery
PROC: 08QPXZZ Repair Left Upper Eyelid, External Approach (ICD-10-PCS; principal; 2016-08-24)
PROC: 0HQ1XZZ Repair Face Skin, External Approach (ICD-10-PCS; 2016-08-24)
PROC: 5A1955Z Respiratory Ventilation, Greater than 96 Consecutive Hours (ICD-10-PCS; 2016-09-02)
PROC: 0BH18EZ Insertion of Endotracheal Airway into Trachea, Via Natural or Artificial Opening Endoscopic (ICD-10-PCS; 2016-09-02)
PROC: 02HV33Z Insertion of Infusion Device into Superior Vena Cava, Percutaneous Approach (ICD-10-PCS; 2016-09-02)
PROC: 0BC78ZZ Extirpation of Matter from Left Main Bronchus, Via Natural or Artificial Opening Endoscopic (ICD-10-PCS; 2016-09-05)
PROC: 0BC68ZZ Extirpation of Matter from Right Lower Lobe Bronchus, Via Natural or Artificial Opening Endoscopic (ICD-10-PCS; 2016-09-05)
PROC: 0BC58ZZ Extirpation of Matter from Right Middle Lobe Bronchus, Via Natural or Artificial Opening Endoscopic (ICD-10-PCS; 2016-09-05)
PROC: 0BC38ZZ Extirpation of Matter from Right Main Bronchus, Via Natural or Artificial Opening Endoscopic (ICD-10-PCS; 2016-09-05)
PROC: 0B9B8ZX Drainage of Left Lower Lobe Bronchus, Via Natural or Artificial Opening Endoscopic, Diagnostic (ICD-10-PCS; 2016-09-05)
PROC: 0B968ZX Drainage of Right Lower Lobe Bronchus, Via Natural or Artificial Opening Endoscopic, Diagnostic (ICD-10-PCS; 2016-09-05)
DX: S06.6X0A Traumatic subarachnoid hemorrhage without loss of consciousness, initial encounter (principal); J69.0 Pneumonitis due to inhalation of food and vomit; S22.42XA Multiple fractures of ribs, left side, initial encounter for closed fracture; S06.330A Contusion and laceration of cerebrum, unspecified, without loss of consciousness, initial encounter; J96.01 Acute respiratory failure with hypoxia; E87.0 Hyperosmolality and hypernatremia; J15.1 Pneumonia due to Pseudomonas; G81.91 Hemiplegia, unspecified affecting right dominant side; C79.51 Secondary malignant neoplasm of bone; F02.81 Dementia in other diseases classified elsewhere, unspecified severity, with behavioral disturbance; E87.3 Alkalosis; R47.01 Aphasia; E87.1 Hypo-osmolality and hyponatremia; J91.8 Pleural effusion in other conditions classified elsewhere; I50.20 Unspecified systolic (congestive) heart failure; E86.9 Volume depletion, unspecified; S06.5X0A Traumatic subdural hemorrhage without loss of consciousness, initial encounter; C61 Malignant neoplasm of prostate; S02.40DA Maxillary fracture, left side, initial encounter for closed fracture; S02.40FA Zygomatic fracture, left side, initial encounter for closed fracture; S01.81XA Laceration without foreign body of other part of head, initial encounter; S01.112A Laceration without foreign body of left eyelid and periocular area, initial encounter; S00.432A Contusion of left ear, initial encounter; D64.9 Anemia, unspecified; H11.422 Conjunctival edema, left eye; R13.10 Dysphagia, unspecified; R73.9 Hyperglycemia, unspecified; E87.6 Hypokalemia; D75.89 Other specified diseases of blood and blood-forming organs; E83.39 Other disorders of phosphorus metabolism; Y95 Nosocomial condition; G89.29 Other chronic pain; M54.5 Low back pain; V28.4XXA Motorcycle driver injured in noncollision transport accident in traffic accident, initial encounter; Y92.410 Unspecified street and highway as the place of occurrence of the external cause
CPT/HCPCS: 36556; 36600; 43752; 70450; 70486; 71010; 71260; 72125; 72141; 72170; 74177; 80048; 80053; 80164; 80202; 80307; 81001; 82140; 82435; 82565; 82805; 82947; 82948; 83735; 84100; 84132; 84155; 84295; 84520; 85007; 85025; 85027; 85240; 85245; 85246; 85247; 85384; 85576; 85610; 85730; 86850; 86900; 86901; 87015; 87040; 87070; 87077; 87086; 87102; 87116; 87186; 87205; 87206; 87641; 93306; 94003; 94150; 94640; 94664; 94667; 94668; 95819; 99291; C1769; G0390; J0131; J1120; J1170; J1630; J1650; J1815; J1940; J1953; J2060; J2250; J2543; J2920; J3010; J3370; J3475; J3480; J7030; J7040; Q9967

== ENCOUNTER 2016-09-16 19:22 | Inpatient (IN) | payer MEDICARE ==
[~2016-09-16] VITALS: Ht 188 cm; Wt 74.2 kg
[~2016-09-16 19:22] MED LIST: ACET1TAB86 PO; AMAN100UDC PO; AMPI1INJ IM; CEFT2INJ2 IV; ENOX30P SQ; FAMO20TA2 PO; FURO20TA PO; HYDR-3516 PO; IPRASOL NEB; KLYTECL NG; LEVA750T9 PO; LIDO5DIS5 T-DERMAL; MEGE40SU PO; NOVOLOGSS SQ; OXYC1TAB63 PO; SENN1TAB PO; VALP250 PO; VANC1000P IV; acyclovir IV
[2016-09-16 20:30] VITALS: BP 99/57; PULSE 112; RESP 24; TEMP 98.4; O2SAT 87
[2016-09-16] MEDS ORDERED: Vancomycin Consult Pharmacy 1 EA OTHER SCH (21:45)
[2016-09-16] MEDS ORDERED: LACTULOSE SYRUP 20 GM/30 ML CUP PO PRN (21:45)
[2016-09-16] MEDS ORDERED: RESP: ALBUTEROL 2.5 MG/IPRATROPIUM 0.5 MG NEB (PRN) NEB (21:45)
[2016-09-16] MEDS ORDERED: MAGNESIUM HYDROXIDE SUSP 30 ML CUP PO PRN (21:45)
[2016-09-16] MEDS ORDERED: ACETAMINOPHEN 325 MG TAB PO PRN (21:45)
[2016-09-16] MEDS ORDERED: SENNOSIDES 8.6 MG TAB PO PRN (21:45)
[2016-09-16] MEDS ORDERED: ONDANSETRON HCL 4 MG/2 ML VIAL IVP PRN (21:45)
[2016-09-16] MEDS ORDERED: traZODone HCL 50 MG TAB PO SCH (21:45)
[2016-09-16] MEDS ORDERED: VALPROIC ACID 250 MG CAP PO SCH (22:00)
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
[2016-09-16] MEDS: SODIUM CHLOR 0.9% 1000 ML INJ 1,000 ML IV SCH (22:26)
[2016-09-16] MEDS: SODIUM CHLORIDE 0.9% IV SCH (22:54)
[2016-09-16] MEDS: ACYCLOVIR IV SCH (22:54)
[2016-09-16] MEDS ORDERED: cefTRIAXone INJ 2,000 MG in SODIUM CHLORIDE 0.9% INJ 100 ML IV SCH (23:00)
[2016-09-16] MEDS: RESP: ALBUTEROL 2.5 MG/IPRATROPIUM 0.5 MG NEB (SCH) NEB ×2 (23:30→23:35)
[2016-09-17] VITALS (16 sets, daily range): BP systolic 100–146; BP diastolic 58–70; PULSE 124–142; RESP 16–32; TEMP 97.4–99; O2SAT 93–100
[2016-09-17] MEDS: AMPICILLIN INJ 2,000 MG in SODIUM CHLORIDE 0.9% INJ 100 ML IV SCH ×6 (00:17→21:58)
[2016-09-17 03:29] LABS: AUTOMATED NEUTROPHIL # 20.7 TH/MM3 (1.8-7.7); BASOPHIL % 0.1 % (0.0-2.0); HEMATOCRIT 31.9 % (39.0-51.0); HEMO FLAGS DIFF FINAL; LYMPH % 2.5 % (9.0-44.0); LYMPHOCYTE # 0.6 TH/MM3 (1.0-4.8); MEAN CELL VOLUME 88.7 FL (80.0-100.0); MEAN CORPUSCULAR HEMOGLOBIN 29.2 PG (27.0-34.0); MEAN CORPUSCULAR HGB CONC 32.9 % (32.0-36.0); MONO % 5.7 % (0.0-8.0); NEUT % 91.7 % (16.0-70.0); PLATELET COUNT 222 TH/MM3 (150-450); RED CELL DISTRIBUTION WIDTH 16.8 % (11.6-17.2); WHITE BLOOD COUNT 22.6 TH/MM3 (4.0-11.0)
[2016-09-17] MEDS: RESP: ALBUTEROL 2.5 MG/IPRATROPIUM 0.5 MG NEB (SCH) NEB ×5 (03:30→20:00)
[2016-09-17 03:43] LABS: ALKALINE PHOSPHATASE 119 U/L (45-117); TOTAL BILIRUBIN ADULT 0.4 MG/DL (0.2-1.0)
[2016-09-17 03:55] LABS: ALT (GPT) 33 U/L (12-78); ANION GAP 16 MEQ/L (5-15); AST (GOT) 153 U/L (15-37); BICARBONATE 21.2 MEQ/L (21.0-32.0); BLOOD UREA NITROGEN 79 MG/DL (7-18); CHLORIDE 100 MEQ/L (98-107); GLOMERULAR FILTRATION RATE 31 ML/MIN (>89); POTASSIUM 6.1 MEQ/L (3.5-5.1); SODIUM (NA) 137 MEQ/L (136-145)
[2016-09-17] MEDS ORDERED: SODIUM POLYSTYRENE SULFONATE SUSP 15 GM/60 ML CUP PO ONE ×2 (04:15→08:00)
[2016-09-17] MEDS ORDERED: MORPHINE SULFATE 4 MG/ML INJ IV PUSH ONE (04:45)
[2016-09-17] MEDS ORDERED: DEXTROSE 50% IN WATER 50 ML VIAL(D50) IV PUSH ONE (04:45)
[2016-09-17] MEDS ORDERED: INSULIN HUMAN REGULAR 1,000 UNITS/10 ML VIAL IV PUSH ONE (04:45)
[2016-09-17] MEDS ORDERED: CALCIUM GLUCONATE 10% 1 GM/10 ML VIAL IV ONE (04:45)
[2016-09-17] MEDS ORDERED: VANCOMYCIN INJ 1,250 MG in SODIUM CHLOR 0.9% 250 ML INJ 250 ML IV SCH (06:00)
[2016-09-17] MEDS ORDERED: MIDAZOLAM HCL 5 MG/ML VIAL (1 ML) ONE (06:04)
[2016-09-17 06:08] LABS: BLOOD GAS BASE EXCESS -7.6 mmol/L (-2-2); BLOOD GAS CARBOXYHEMOGLOBIN 1.5 % (0-4); BLOOD GAS HCO3 15 mmol/L (22-26); BLOOD GAS METHEMOGLOBIN 0.7 % (0-2); BLOOD GAS O2 HGB SATURATION 89 % (90-100); BLOOD GAS OXYGEN CONTENT 12.6 Vol % (12.0-20.0); BLOOD GAS PCO2 21 mmHg (38-42); BLOOD GAS PO2 63 mmHg (61-120); TEMP CORR TO 98.6
[2016-09-17 06:09] LABS: CRITICAL VALUE YES
[2016-09-17 06:10] LABS: DRAW SITE RT RADIAL; FIO2 100 %; LITER FLOW 15 L/M; NUMBER OF ARTERIAL PUNCTURES 1; OXYGEN DEVICE NRB; STAT YES; ULNAR PULSE PRESENT
[2016-09-17] MEDS: SODIUM CHLORIDE 0.9% IV SCH ×3 (06:24→21:58)
[2016-09-17] MEDS: ACYCLOVIR IV SCH ×3 (06:24→21:58)
[2016-09-17] MEDS: AMANTADINE HCL SOLN 100 MG/10 ML UDC PO SCH ×2 (06:25→13:55)
[2016-09-17] MEDS ORDERED: SODIUM POLYSTYRENE SULFONATE 30 GM/120 ML ENEMA RECTAL ONE (07:00)
[2016-09-17] MEDS ORDERED: SODIUM CHLOR 0.9% 1000 ML INJ 1,000 ML IV ONE (07:00)
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
[2016-09-17] MEDS: INSULIN NovoLIN REGULAR SUPPLEMENTAL SCALE SQ SCH ×3 (07:45→18:00)
[2016-09-17] MEDS ORDERED: DEXTROSE 50% IN WATER 50 ML VIAL(D50) IV PUSH PRN (07:45)
[2016-09-17] MEDS ORDERED: GLUCAGON 1 MG/ML VIAL OTHER PRN (07:45)
[2016-09-17] MEDS ORDERED: ROCURONIUM INJ 50 MG/5 ML VIAL IV ONE (08:00)
[2016-09-17] MEDS ORDERED: FUROSEMIDE 20 MG TAB PO SCH (09:00)
[2016-09-17] MEDS: MEGESTROL ACETATE SUSP 400 MG/10 ML CUP PO SCH (09:00)
[2016-09-17] MEDS ORDERED: ENOXAPARIN SODIUM 40 MG/0.4 ML SYRINGE SQ SCH (09:00)
[2016-09-17] MEDS: CEFEPIME INJ 2,000 MG in SODIUM CHLORIDE 0.9% INJ 100 ML IV SCH ×2 (09:01→20:29)
[2016-09-17] MEDS: metroNIDAZOLE 500 MG INJ 100 ML IV SCH ×3 (09:02→20:29)
[2016-09-17] MEDS ORDERED: PROPOFOL 1000 MG/100 ML INJ 100 ML ONE (10:58)
[2016-09-17 11:15] LABS: BLOOD GAS BASE EXCESS -7.6 mmol/L (-2-2); BLOOD GAS CARBOXYHEMOGLOBIN 0.8 % (0-4); BLOOD GAS HCO3 19 mmol/L (22-26); BLOOD GAS METHEMOGLOBIN 0.7 % (0-2); BLOOD GAS O2 HGB SATURATION 98 % (90-100); BLOOD GAS OXYGEN CONTENT 13.9 Vol % (12.0-20.0); BLOOD GAS PCO2 45 mmHg (38-42); BLOOD GAS PO2 243 mmHg (61-120); BLOOD GAS TOTAL HGB 9.7 G/DL (12.0-16.0); CRITICAL VALUE YES; DRAW SITE ART LINE; FIO2 100 %; OXYGEN DEVICE VENTILATOR; STAT YES; TEMP CORR TO 98.6; VENT SETTINGS SEE COMMENTS
--- NOTE | 2016-09-17 11:16 | RADRPT ---
EXAM DATE/TIME: 09/17/2016 11:03 [place] COMPARISON: CHEST SINGLE AP, September 10, 2016, 4:38. INDICATIONS : Central line placement. MEDICAL HISTORY : Carcinoma, prostate. Compression fractures SURGICAL HISTORY : None. ENCOUNTER: Subsequent ACUITY: 4 - 6 days PAIN SCORE: Non-responsive. LOCATION: Bilateral chest FINDINGS: Interval placement of right IJ central line with tip in the very proximal right atrium. ETT and NGT a re stable in position. Interval removal of right subclavian catheter. Persistent left lower lung zone pleural-parenchymal disease. Cardiomediastinal contours are stable. Remainder of the exam is unchang ed. CONCLUSION: 1. Right IJ central line tip in the very proximal right atrium. No pneumothorax. 2. Persistent left lower lobe airspace disease and associated small pleural effusion. Calixto Jean Baptiste MD on September 17, 2016 at 11:12 Board Certified Radiologist. This report was verified electronically.
[2016-09-17] MEDS: DOCUSATE SODIUM 50 MG/SENNA 8.6 MG TAB PO SCH ×2 (11:30→20:29)
[2016-09-17] MEDS: FAMOTIDINE 20 MG TAB PO SCH ×2 (11:30→20:29)
[2016-09-17] MEDS: LACTOBACILLUS ACIDOPHILUS 1 GM PACKET PO SCH ×3 (11:30→18:00)
--- NOTE | 2016-09-17 11:39 | PD.PROCEDR ---
Procedure Note Procedure Endotracheal Intubation Diagnosis: Acute hypoxic respiratory failure Indications: Acute hypoxic respiratory failure, aspiration pneumonia Consent: Written consent was obtained Anesthesia: Versed 10 mg IV, Rocuronium 100 mg IV Description of the Procedure: The patient was positioned in the sniffing position. Pre-oxygenation was performed using a nonrebreather. Anesthesia was induced via rapid sequence. 2 attempts at laryngoscopy were made. First attempt was using a Mac 4 blade, however the large maxillary incisors prevented full placement of the blade. Second attempt was made using a Mac 3 blade with a grade 1 view and easy atraumatic placement of the blade in the mouth. A 8.5 cuffed endotracheal tube was inserted atraumatically through the vocal cords. Confirmation of correct endotracheal tube placement was made by equal and bilateral breath sounds and colorimetric CO2 detection. The endotracheal tube was secured at 23 cm at the teeth. There were no immediate complications noted. The lips and teeth were intact without any evidence of trauma at the conclusion of the intubation. The patient remained hemodynamically stable throughout the procedure. A chest x-ray has been ordered. I personally performed the procedure. Mike Martinez MD Sep 17, 2016 11:39
--- NOTE | 2016-09-17 11:41 | PD.PROCEDR ---
Procedure Note Procedure Central Line Procedure Note Right IJ 7 Mexican 20 cm triple lumen catheter Diagnosis: Septic shock Indications: Shock with need for highly potent vasoactive substances Consent: Written consent was obtained Anesthesia: Versed 10 mg IV Description of the Procedure: The patient was placed in the supine, mild- Trendelenburg position. The area was prepped and draped sterilely. A 19g needle was inserted under negative pressure aspiration and dark venous blood was obtained. A guidewire was inserted easily without resistance. A small incision was made using a #11 blade. Using a modified Seldinger technique, the dilator and 7 Mexican, 20 cm catheter were advanced over the guidewire without resistance. All ports were aspirated and flushed, and had brisk blood return. The line was secured at 18 at the skin using 2-0 silk interrupted sutures. A Biopatch and Transparent sterile dressing were applied. There were no immediate complications noted. There was minimal EBL. The patient tolerated the procedure well. Ultrasound Guidance: Ultrasound guidance was used to identify the right internal jugular vein. The vascular anatomy of the right anterior neck was normal. The vessel was cannulated under direct, real-time ultrasound visualization. After placement of the guidewire, confirmation of the guidewire in the lumen of the vessel was made using ultrasound visualization, before dilation of the tract. A Chest x-ray has been ordered. I personally performed the procedure. Mike Martinez MD Sep 17, 2016 11:41
--- NOTE | 2016-09-17 11:42 | PD.PROCEDR ---
Procedure Note Procedure Procedure: Arterial Line Placement Right radial arterial line Diagnosis: Septic shock Indications: Need for beat to beat hemodynamic monitoring Consent: Consent is deemed emergent or medically necessary Description of the Procedure: The right wrist was prepped and draped sterilely. 1% lidocaine was used for local anesthesia. The pulse was located and a needle was advanced into the artery. A 20 gauge, 12 cm catheter was advanced into the artery using a modified Seldinger technique. The catheter was sutured to the skin and a sterile dressing was applied. The catheter was connected to a pressure transducer and an arterial waveform was noted. There were no immediate complications noted. There was minimal EBL. I personally performed the procedure. Mike Martinez MD Sep 17, 2016 11:42
--- NOTE | 2016-09-17 12:15 | EKG ---
Date Performed: 09/17/2016 Time Performed: 05:38:54 PTAGE: 70 years EKG: Probable atrial flutter Left axis deviation Ant/septal and lateral T wave changes may be du e to myocardial ischemia Abnormal ECG NO PREVIOUS TRACING DOCTOR: Skip Mistry Interpretating Date/Time 09/17/2016 12:13:28
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
[2016-09-17] MEDS: VALPROIC ACID SYRUP 250 MG/5 ML UDC PO SCH ×2 (12:30→20:29)
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
[2016-09-17 13:14] LABS: BACTERIA, URINE FEW /hpf; BLOOD, URINE MOD (NEG); COMMENT (UR) CULTURE INDICATED; CULTURE IF INDICATED CULTURE INDICATED; GLUCOSE,URINE NEG (NEG); KETONE, URINE NEG (NEG); MUCUS URINE FEW /lpf (OCC); NITRITE,URINE NEG (NEG); SQUAMOUS EPITHELIAL CELL URINE <1 /hpf (0-5); URINE COLOR YELLOW (YELLW/STRAW)
[2016-09-17 13:26] LABS: POTASSIUM 5.5 MEQ/L (3.5-5.1)
[2016-09-17 13:52] LABS: CALCIUM-PROTEIN CORRECTED 7.7 MG/DL (8.5-10.1)
[2016-09-17] MEDS: PROPOFOL 1000 MG/100 ML INJ 100 ML IV SCH (13:54)
[2016-09-17] MEDS: SODIUM CHLOR 0.9% 1000 ML INJ 1,000 ML IV SCH ×2 (14:18→20:30)
--- NOTE | 2016-09-17 14:20 | OTSOAPIP ---
TIME SESSION COMPLETED: 1300 CHANGE IN STATUS PER Nestor EVANGELISTA RN. WILL DISCHARGE AND AWAIT NEW ORDERS. Therapist: Joanie Arvizu OTR/L Signature on file
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
[2016-09-17] MEDS: CHLORHEXIDINE 0.12% (ORAL KIT) 15 ML CUP MT SCH (20:00)
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
[2016-09-18] VITALS (18 sets, daily range): BP systolic 116–153; BP diastolic 54–64; PULSE 112–126; RESP 14–26; TEMP 97.4–99; O2SAT 98–100
[2016-09-18] MEDS: AMPICILLIN INJ 2,000 MG in SODIUM CHLORIDE 0.9% INJ 100 ML IV SCH ×4 (00:07→12:01)
[2016-09-18] MEDS: metroNIDAZOLE 500 MG INJ 100 ML IV SCH ×4 (01:10→19:53)
[2016-09-18] MEDS: SODIUM CHLOR 0.9% 1000 ML INJ 1,000 ML IV SCH ×3 (02:57→20:56)
[2016-09-18] MEDS: RESP: ALBUTEROL 2.5 MG/IPRATROPIUM 0.5 MG NEB (SCH) NEB ×6 (04:00→19:48)
[2016-09-18 04:15] LABS: HEMATOCRIT 22.6 % (39.0-51.0); MEAN CORPUSCULAR HEMOGLOBIN 29.8 PG (27.0-34.0); MEAN CORPUSCULAR HGB CONC 33.9 % (32.0-36.0); PLATELET COUNT 155 TH/MM3 (150-450); RED BLOOD COUNT 2.57 MIL/MM3 (4.50-5.90); RED CELL DISTRIBUTION WIDTH 16.9 % (11.6-17.2); REVIEW FLAG FINAL; WHITE BLOOD COUNT 19.5 TH/MM3 (4.0-11.0)
[2016-09-18] MEDS: SODIUM CHLORIDE 0.9% IV SCH ×2 (05:00→13:27)
[2016-09-18] MEDS: ACYCLOVIR IV SCH ×2 (05:00→13:27)
[2016-09-18 05:04] LABS: BICARBONATE 17.8 MEQ/L (21.0-32.0); POTASSIUM 4.5 MEQ/L (3.5-5.1)
[2016-09-18] MEDS: INSULIN NovoLIN REGULAR SUPPLEMENTAL SCALE SQ SCH ×5 (06:00→23:11)
[2016-09-18] MEDS: AMANTADINE HCL SOLN 100 MG/10 ML UDC PO SCH ×2 (06:03→12:02)
[2016-09-18] MEDS: CHLORHEXIDINE 0.12% (ORAL KIT) 15 ML CUP MT SCH ×2 (08:00→20:10)
[2016-09-18] MEDS: VALPROIC ACID SYRUP 250 MG/5 ML UDC PO SCH ×2 (08:38→20:11)
[2016-09-18] MEDS: DOCUSATE SODIUM 50 MG/SENNA 8.6 MG TAB PO SCH ×2 (08:39→20:10)
[2016-09-18] MEDS: LACTOBACILLUS ACIDOPHILUS 1 GM PACKET PO SCH ×3 (08:39→16:46)
[2016-09-18] MEDS: FAMOTIDINE 20 MG TAB PO SCH ×2 (08:40→20:10)
[2016-09-18] MEDS: CEFEPIME INJ 2,000 MG in SODIUM CHLORIDE 0.9% INJ 100 ML IV SCH ×2 (08:41→20:10)
[2016-09-18] MEDS: MEGESTROL ACETATE SUSP 400 MG/10 ML CUP PO SCH (08:41)
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
[2016-09-18 09:12] LABS: RETIC % 2.6 % (0.4-3.0); REVIEW FLAG FINAL
[2016-09-18 10:38] LABS: VANCOMYCIN TROUGH 16.6 MCG/ML (5.0-10.0)
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
[2016-09-18 13:06] LABS: HEMATOCRIT 21.7 % (39.0-51.0); REVIEW FLAG FINAL
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
[2016-09-18] MEDS: PROPOFOL 1000 MG/100 ML INJ 100 ML IV SCH ×2 (16:05→20:56)
[2016-09-18] MEDS: HEPARIN SODIUM - SQ 10,000 UNITS/ML VIAL SQ SCH (16:46)
[2016-09-18] MEDS ORDERED: PHARMACY ORDERED LAB ONE (17:45)
[2016-09-19] VITALS (15 sets, daily range): BP systolic 133–152; BP diastolic 56–66; PULSE 102–121; RESP 12–22; TEMP 98–99.1; O2SAT 99–100
[2016-09-19] MEDS: RESP: ALBUTEROL 2.5 MG/IPRATROPIUM 0.5 MG NEB (SCH) NEB ×4 (00:17→12:48)
[2016-09-19] MEDS: HEPARIN SODIUM - SQ 10,000 UNITS/ML VIAL SQ SCH ×3 (00:29→16:08)
[2016-09-19] MEDS: metroNIDAZOLE 500 MG INJ 100 ML IV SCH ×2 (01:25→09:19)
[2016-09-19] MEDS: PROPOFOL 1000 MG/100 ML INJ 100 ML IV SCH ×2 (02:21→05:07)
[2016-09-19 04:18] LABS: HEMATOCRIT 21.6 % (39.0-51.0); MEAN CELL VOLUME 88.8 FL (80.0-100.0); MEAN CORPUSCULAR HEMOGLOBIN 28.8 PG (27.0-34.0); MEAN CORPUSCULAR HGB CONC 32.5 % (32.0-36.0); PLATELET COUNT 165 TH/MM3 (150-450); RED BLOOD COUNT 2.44 MIL/MM3 (4.50-5.90); RED CELL DISTRIBUTION WIDTH 16.6 % (11.6-17.2); REVIEW FLAG FINAL
[2016-09-19 04:50] LABS: BICARBONATE 19.4 MEQ/L (21.0-32.0); POTASSIUM 3.3 MEQ/L (3.5-5.1)
[2016-09-19] MEDS: INSULIN NovoLIN REGULAR SUPPLEMENTAL SCALE SQ SCH ×2 (05:10→11:54)
[2016-09-19] MEDS: AMANTADINE HCL SOLN 100 MG/10 ML UDC PO SCH ×2 (06:13→11:42)
[2016-09-19] MEDS: CHLORHEXIDINE 0.12% (ORAL KIT) 15 ML CUP MT SCH (08:00)
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
[2016-09-19] MEDS: DOCUSATE SODIUM 50 MG/SENNA 8.6 MG TAB PO SCH (09:18)
[2016-09-19] MEDS: FAMOTIDINE 20 MG TAB PO SCH (09:18)
[2016-09-19] MEDS: LACTOBACILLUS ACIDOPHILUS 1 GM PACKET PO SCH ×2 (09:18→11:42)
[2016-09-19] MEDS: VALPROIC ACID SYRUP 250 MG/5 ML UDC PO SCH (09:18)
[2016-09-19] MEDS: CEFEPIME INJ 2,000 MG in SODIUM CHLORIDE 0.9% INJ 100 ML IV SCH (09:19)
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
[2016-09-19] MEDS ORDERED: VANCOMYCIN INJ 1,250 MG in SODIUM CHLOR 0.9% 250 ML INJ 250 ML IV SCH (12:00)
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
[2016-09-20] MEDS ORDERED: PHARMACY ORDERED LAB ONE (11:45)
== END 2016-09-19 18:02 | DRG 871 ==
LOC: N03A 20:35
PROVIDERS: ADMIT Internal Medicine Critical Care Medicine; ATTEND Internal Medicine Critical Care Medicine
PROC: 0BH17EZ Insertion of Endotracheal Airway into Trachea, Via Natural or Artificial Opening (ICD-10-PCS; principal; 2016-09-17)
PROC: 03HY32Z Insertion of Monitoring Device into Upper Artery, Percutaneous Approach (ICD-10-PCS; 2016-09-17)
PROC: 5A1945Z Respiratory Ventilation, 24-96 Consecutive Hours (ICD-10-PCS; 2016-09-17)
PROC: 05HM33Z Insertion of Infusion Device into Right Internal Jugular Vein, Percutaneous Approach (ICD-10-PCS; 2016-09-17)
DX: A41.9 Sepsis, unspecified organism (principal); G93.41 Metabolic encephalopathy; J96.01 Acute respiratory failure with hypoxia; R65.21 Severe sepsis with septic shock; J69.0 Pneumonitis due to inhalation of food and vomit; E87.2 Acidosis; E46 Unspecified protein-calorie malnutrition; C77.5 Secondary and unspecified malignant neoplasm of intrapelvic lymph nodes; I42.9 Cardiomyopathy, unspecified; C79.51 Secondary malignant neoplasm of bone; I50.22 Chronic systolic (congestive) heart failure; Z78.1 Physical restraint status; G89.29 Other chronic pain; E87.5 Hyperkalemia; R33.9 Retention of urine, unspecified; F41.9 Anxiety disorder, unspecified; Z87.820 Personal history of traumatic brain injury; Z85.46 Personal history of malignant neoplasm of prostate; D64.9 Anemia, unspecified; R13.10 Dysphagia, unspecified; R73.9 Hyperglycemia, unspecified; B95.62 Methicillin resistant Staphylococcus aureus infection as the cause of diseases classified elsewhere; Y95 Nosocomial condition
CPT/HCPCS: 31500; 36600; 71010; 76775; 80048; 80053; 80069; 80164; 80202; 81001; 82728; 82805; 82948; 83540; 83605; 84155; 84484; 85014; 85018; 85025; 85027; 85044; 86403; 87040; 87070; 87086; 87147; 87186; 87205; 87449; 87641; 93005; 94002; 94003; 94640; 95819; J0133; J0290; J0610; J0692; J0696; J1644; J1815; J2250; J2270; J3370; J7030; J7050